=== PATIENT | male | born 1975 | race Caucasian/White ===

== ENCOUNTER 2018-10-14 16:24 | Emergency (ER) | payer SELFPAY ==
--- NOTE | 2018-10-14 17:20 | ER ---
Nurse's Notes [facility] Name: Shakir Nicole IV Age: 43 yrs Sex: Male : 1975 Arrival Date: 10/14/2018 Time: 16:27 Bed 27 Private MD: Diagnosis: Impacted cerumen, left ear Presentation: 10/14 16:28 Presenting complaint: Patient states: i have an earring on the inside of my L ear and hj its been there for a week now;. Transition of care: patient was not received from another setting of care. Onset of symptoms was October 14, 2018. Risk Assessment: Do you want to hurt yourself or someone else? Patient reports no desire to harm self or others. Initial Sepsis Screen: Does the patient meet any 2 criteria? No. Patient's initial sepsis screen is negative. Does the patient have a suspected source of infection? No. Patient's initial sepsis screen is negative. Care prior to arrival: None. 16:28 Method Of Arrival: Ambulatory 16:28 Acuity: SONIDO 4 hj Historical: - Allergies: 16:29 No Known Allergies; hj - PMHx: 16:29 None; hj - PSHx: 16:29 None; hj - Immunization history:: Adult Immunizations up to date. - Social history:: Smoking status: unknown. - Ebola Screening: : No symptoms or risks identified at this time. Screenin:08 Abuse screen: Denies threats or abuse. Denies injuries from another. Nutritional rv screening: No deficits noted. Tuberculosis screening: No symptoms or risk factors identified. Fall Risk None identified. Assessment: 17:07 General: Appears in no apparent distress. comfortable, Behavior is calm, cooperative. rv Pain: Complains of pain in left ear. Neuro: Level of Consciousness is awake, alert, obeys commands, Oriented to person, place, time, situation. Cardiovascular: Patient's skin is warm and dry. Respiratory: Airway is patent. GI: No signs and/or symptoms were reported involving the gastrointestinal system. : No signs and/or symptoms were reported regarding the genitourinary system. EENT: Ear canal impacted earwax. Derm: Skin is intact. Musculoskeletal: No signs and/or symptoms reported regarding the musculoskeletal system. Vital Signs: 16:30 BP 100 / 58; Pulse 75; Resp 18; Temp 98.1(O); Pulse Ox 100% on R/A; Weight 79.38 kg; hj Height 5 ft. 11 in. (180.34 cm); Pain 10/10; 16:30 Body Mass Index 24.41 (79.38 kg, 180.34 cm) ED Course: 16:27 Patient arrived in ED. mr 16:28 Ramos Don PA is PHCP. cp 16:28 Ramos Davey MD is Attending Physician. cp 16:29 Triage completed. hj 16:29 Arm band placed on left wrist. hj 16:52 John Galarza, ANNALEE is Primary Nurse. rv 17:09 Patient has correct armband on for positive identification. Bed in low position. Call rv light in reach. Side rails up X 1. Pulse ox on. NIBP on. 17:11 No provider procedures requiring assistance completed. Patient did not have IV access rv during this emergency room visit. Ear irrigation: Route left ear with Other warm water amount 250ml Patient tolerated well. 17:18 Susana Leblanc MD is Referral Physician. cp Administered Medications: No medications were administered Outcome: 17:11 Discharged to home ambulatory, with family. rv 17:11 Condition: improved 17:19 Discharge ordered by MD. cp 17:25 Discharge instructions given to patient, Instructed on discharge instructions, follow rv up and referral plans. Demonstrated understanding of instructions, follow-up care. 17:25 Patient left the ED. rv Signatures: Gege Santiago mr GibbsNam RN RN Ramos Don PA PA cp John Galarza, RN RN rv
--- NOTE | 2018-10-14 17:20 | EDPHYS ---
Physician Documentation [facility] Name: Shakir Nicole IV Age: 43 yrs Sex: Male : 1975 Arrival Date: 10/14/2018 Time: 16:27 Bed 27 Private MD: ED Physician Ramos Davey HPI: 10/14 16:50 This 43 yrs old Male presents to ER via Ambulatory with complaints of Foreign cp Body In Ear. 16:50 The patient presents with a foreign body sensation, earring. cp 16:50 The complaints affect the left ear canal. Onset: The symptoms/episode began/occurred 1 cp week(s) ago. Associated signs and symptoms: Pertinent positives: decreased hearing, Pertinent negatives: fever, lightheadedness, sinus trouble, sore throat, vertigo, vomiting. Severity of symptoms: in the emergency department the symptoms are unchanged despite home interventions. Historical: - Allergies: 16:29 No Known Allergies; hj - PMHx: 16:29 None; hj - PSHx: 16:29 None; hj - Immunization history:: Adult Immunizations up to date. - Social history:: Smoking status: unknown. - Ebola Screening: : No symptoms or risks identified at this time. ROS: 16:55 Constitutional: Negative for body aches, chills, fever, poor PO intake. cp 16:55 Eyes: Negative for injury, pain, redness, and discharge. cp 16:55 ENT: Positive for foreign body sensation, hearing loss, Negative for drainage from ear(s), ear pain, difficulty swallowing, difficulty handling secretions. 16:55 Cardiovascular: Negative for chest pain, palpitations. 16:55 Respiratory: Negative for cough, shortness of breath, wheezing. 16:55 Abdomen/GI: Negative for abdominal pain, nausea, vomiting, and diarrhea. 16:55 Skin: Negative for cellulitis, rash. 16:55 Neuro: Negative for altered mental status, headache, weakness. 16:55 All other systems are negative. Exam: 17:00 Constitutional: The patient appears in no acute distress, alert, awake, non-toxic, well cp developed, well nourished. 17:00 Head/Face: Normocephalic, atraumatic. cp 17:00 Eyes: Periorbital structures: appear normal, Conjunctiva: normal, no exudate, no injection, Lids and lashes: appear normal, bilaterally. 17:00 ENT: External ear(s): are unremarkable, Ear canal(s): cerumen impaction, that is moderate, occluding the left ear canal, TM's: not visable, because of cerumen, Examination of the other ear shows no obvious abnormality, Nose: is normal, Mouth: Lips: moist, Oral mucosa: moist, Posterior pharynx: Airway: no evidence of obstruction, patent. 17:00 Neck: Lymph nodes: no appreciated lymphadenopathy. 17:00 Chest/axilla: Inspection: normal. 17:00 Cardiovascular: Rate: normal. 17:00 Respiratory: the patient does not display signs of respiratory distress, Respirations: normal, no use of accessory muscles, no retractions, no splinting, no tachypnea. 17:00 Skin: no rash present. Vital Signs: 16:30 BP 100 / 58; Pulse 75; Resp 18; Temp 98.1(O); Pulse Ox 100% on R/A; Weight 79.38 kg; hj Height 5 ft. 11 in. (180.34 cm); Pain 10/10; 16:30 Body Mass Index 24.41 (79.38 kg, 180.34 cm) hj MDM: 16:41 Patient medically screened. [facility] 17:00 Differential diagnosis: otitis media, otitis externa, ruptured TM, foreign body, cp cerumen impaction. 17:18 Data reviewed: vital signs, nurses notes, and as a result, I will discharge patient. cp 17:18 Counseling: I had a detailed discussion with the patient and/or guardian regarding: the cp historical points, exam findings, and any diagnostic results supporting the discharge/admit diagnosis, to return to the emergency department if symptoms worsen or persist or if there are any questions or concerns that arise at home. Response to treatment: the patient's symptoms have markedly improved after treatment, and as a result, I will discharge patient. ED course: Ear irrigated by nurse and cerumen removed by nursing staff. Administered Medications: No medications were administered Disposition: 10/14/18 17:19 Discharged to Home. Impression: Impacted cerumen, left ear. - Condition is Stable. - Discharge Instructions: Earwax Buildup, Adult, Ear Irrigation. - Medication Reconciliation Form, Thank You Letter, Antibiotic Education, Prescription Opioid Use form. - Follow up: Leblanc, Susana, MD; When: As needed; Reason: Worsening of condition. - Problem is new. - Symptoms have improved. Addendum: 10/15/2018 20:36 Co-signature as Attending Physician, Ramos Davey MD I agree with the assessment and c gordillo plan of care. Signatures: Ramos Davey MD MD cha Joaquin, Henry RN RN Ramos Don PA PA John Guzman RN RN rv Corrections: (The following items were deleted from the chart) 10/14 17:25 17:19 10/14/2018 17:19 Discharged to Home. Impression: Impacted cerumen, left ear. rv Condition is Stable. Forms are Medication Reconciliation Form, Thank You Letter, Antibiotic Education, Prescription Opioid Use. Follow up: Susana Leblanc; When: As needed; Reason: Worsening of condition. Problem is new. Symptoms have improved. cp 17:10/13 16:55 Constitutional: Negative for chills, fever, poor PO intake, cp cp 10/14 16:10/13 16:55 Eyes: Negative for injury, pain, redness, and discharge, cp cp 10/14 17:10/13 16:55 ENT: Positive for foreign body sensation, hearing loss, Negative for cp drainage from ear(s), ear pain, sinus congestion, sinus pain, sore throat, difficulty swallowing, difficulty handling secretions, cp 10/14 17:10/13 16:55 Cardiovascular: Negative for chest pain, cp cp 10/14 17:10/13 16:55 Respiratory: Negative for cough, shortness of breath, wheezing, cp cp 10/14 17:30 10/13 16:55 Abdomen/GI: Negative for abdominal pain, nausea, vomiting, and diarrhea, cp cp 10/14 17:30 10/13 16:55 Skin: Negative for rash, cp cp 10/14 17:10/13 16:55 Neuro: Negative for altered mental status, headache, weakness, cp cp 10/14 17:10/13 16:55 All other systems are negative, cp cp
[2018-10-14 17:43] VITALS: BP 100/58; TEMP 98.1; O2SAT 100
== END 2018-10-14 17:25 | disposition home or self-care (01) ==
LOC: ER 16:24
DX: H61.22 Impacted cerumen, left ear (principal)
CPT/HCPCS: 99283

== ENCOUNTER 2019-03-11 16:54 | Emergency (ER) | payer SELFPAY ==
[2019-03-11] MEDS ORDERED: MORPHINE 4 MG/ML SYR ONE (17:08)
[2019-03-11] MEDS ORDERED: NA CHLORIDE 0.9% 1,000 ML ONE (17:08)
[2019-03-11] MEDS ORDERED: ONDANSETRON 4 MG/2 ML VIAL ONE (17:08)
[2019-03-11 17:17] LABS: Absolute Lymphocytes (CBC) 2.9 K/uL (0.7-4.9); Basophils % 0.8 % (0-1.3); Hematocrit 49.2 % (39.6-49.0); Lymphocytes % 33.5 % (15.3-44.8); MPV 9.1 fL (7.6-11.3); RBC Red Blood Cell Count 5.59 M/uL (4.33-5.43)
--- NOTE | 2019-03-11 17:27 | RAD REPORT ---
EXAM DESCRIPTION: CT - Stone Protocol - 03/11/2019 5:19 pm CLINICAL HISTORY: Flank pain. right flank pain, eval for stone COMPARISON: No comparisons TECHNIQUE: Axial images were obtained without oral or IV contrast. Lack of contrast limits solid org an and vascular assessment. The [id number] spans the entirety of the system partially obscuring uppermost abdomen and lung bases. Coronal reformatted images were obtained and reviewed. All CT scans are performed using dose optimization technique as appropriate and may include automated exposure control or mA/KV adjustment according to patient size. FINDINGS: The lower lung charles are clear. Imaged portions of the liver and spleen show no suspicious findings on non-contrast imaging. The panc reas and adrenal glands are normal. No pathologic lymphadenopathy in the abdomen or pelvis. 5 mm stone (730 HU) is present in the proximal right ureter resulting in mild right hydronephrosis. A dditional punctate calculi are present both kidneys. No bowel obstruction, free air, free fluid or abscess. Normal appendix noted. No significant bony abnormality. IMPRESSION: 5 mm stone is present in the proximal right ureter resulting in mild right hydronephrosi s. Additional punctate bilateral nephrolithiasis noted.
[2019-03-11] MEDS ORDERED: KETOROLAC 30 MG/ML INJ ONE (17:40)
[2019-03-11] MEDS ORDERED: TAMSULOSIN 0.4 MG SR CAP ONE (17:40)
[2019-03-11] MEDS ORDERED: MAGNESIUM SULFATE 1 gm IVPB 1 GM/100 ML BAG IV ONE (17:40)
[2019-03-11 17:44] LABS: Albumin 4.1 g/dL (3.4-5.0); Bilirubin Direct 0.1 mg/dL (0-0.2); Bilirubin Total 0.4 mg/dL (0.2-1.0); Potassium 4.1 mmol/L (3.5-5.1); Protein, Total 8.2 g/dL (6.4-8.2)
--- NOTE | 2019-03-11 18:45 | EDPHYS ---
Physician Documentation [facility] Name: Shakir Nicole IV Age: 44 yrs Sex: Male : 1975 Arrival Date: 03/11/2019 Time: 16:55 Bed 27 Private MD: ED Physician Emmanuel Freitas HPI: 03/11 17:03 This 44 yrs old Male presents to ER via EMS with complaints of right flank rn pain. 17:03 The patient complains of pain in the right mid back. The pain radiates to the right mid rn back. Onset: The symptoms/episode began/occurred 1 hour(s) ago. Modifying factors: The symptoms are alleviated by nothing. the symptoms are aggravated by nothing. Associated signs and symptoms: Pertinent positives: nausea, Pertinent negatives: fever, urinary frequency, headache, hematuria, vomiting. Severity of pain: At its worst the pain was moderate in the emergency department the pain is unchanged. The patient has not experienced similar symptoms in the past. Reports acute onset right flank pain, vasquez 1 hour [employer]BI[employer], no fever, no trauma. Has never had before, does not radiate down legs, no bowel/bladder dysfunction.. Historical: - Allergies: 17:03 No Known Allergies; mg2 - Home Meds: 17:03 None [Active]; mg2 - PMHx: 17:03 None; mg2 - PSHx: 17:03 None; mg2 - Immunization history:: Flu vaccine is not up to date. - Social history:: Smoking status: Patient reports the use of cigarette tobacco products, Patient uses alcohol. - Ebola Screening: : No symptoms or risks identified at this time. - Family history:: not pertinent. - Hospitalizations: : No recent hospitalization is reported. ROS: 17:03 Constitutional: Negative for fever, chills, and weight loss, Eyes: Negative for injury, rn pain, redness, and discharge, Neck: Negative for injury, pain, and swelling, Cardiovascular: Negative for chest pain, palpitations, and edema, Respiratory: Negative for shortness of breath, cough, wheezing, and pleuritic chest pain, Abdomen/GI: Negative for diarrhea, and constipation, Back: + right flank pain : Negative for injury, bleeding, discharge, and swelling, MS/Extremity: Negative for injury and deformity, Skin: Negative for injury, rash, and discoloration, Neuro: Negative for headache, weakness, numbness, tingling, and seizure. Exam: 17:03 Constitutional: This is a well developed, well nourished patient who is awake, alert, rn + appears in pain Head/Face: Normocephalic, atraumatic. Eyes: Pupils equal round and reactive to light, extra-ocular motions intact. Lids and lashes normal. Conjunctiva and sclera are non-icteric and not injected. Cornea within normal limits. Periorbital areas with no swelling, redness, or edema. ENT: MMM Cardiovascular: Tachycardic, regular. No pulse deficits. Respiratory: No increased work of breathing, no retractions or nasal flaring. Abdomen/GI: soft, non-tender Back: No spinal tenderness. No costovertebral tenderness. Full range of motion. MS/ Extremity: Pulses equal, no cyanosis. Neurovascular intact. Full, normal range of motion. Equal circumference. Neuro: Awake and alert, GCS 15, oriented to person, place, time, and situation. Cranial nerves II-XII grossly intact. Motor strength 5/5 in all extremities. Sensory grossly intact. Vital Signs: 17:10 BP 153 / 92; Pulse 80; Resp 18; Temp 98; Pulse Ox 100% on R/A; Weight 79.38 kg; Height mg2 5 ft. 11 in. (180.34 cm); Pain 10/10; 18:23 BP 145 / 70; Pulse 71; Resp 18; Pulse Ox 100% on R/A; mg2 19:30 BP 135 / 78; Pulse 70; Resp 18; Temp 98; Pulse Ox 100% on R/A; mg2 17:10 Body Mass Index 24.41 (79.38 kg, 180.34 cm) mg2 MDM: 16:56 Patient medically screened. rn 18:42 Differential diagnosis: nephrolithiasis. Data reviewed: vital signs, nurses notes, agricultural labor camp manager test result(s), radiologic studies, CT scan, and as a result, I will discharge patient. Counseling: I had a detailed discussion with the patient and/or guardian regarding: the historical points, exam findings, and any diagnostic results supporting the discharge/admit diagnosis, lab results, radiology results, the need for outpatient follow up, to return to the emergency department if symptoms worsen or persist or if there are any questions or concerns that arise at home. Response to treatment: the patient's symptoms have markedly improved after treatment, Pain down to 3/10, feels pain migrating now in groin., and as a result, I will discharge patient. Special discussion: I discussed with the patient/guardian in detail that at this point there is no indication for admission to the hospital. It is understood, however, that if the symptoms persist or worsen the patient needs to return immediately for re-evaluation. Based on the history and exam findings, there is no indication for further emergent testing or inpatient evaluation. I discussed with the patient/guardian the need to see the urologist for further evaluation of the symptoms. ED course: Pt sleeping, states pain 3/10, will give small dose of demerol for continued pain control, has picking him up, return precautions given and understood.. 03/11 17:02 Order name: Basic Metabolic Panel; Complete Time: 17:57 rn 03/11 17:02 Order name: CBC with Diff; Complete Time: 17:29 rn 03/11 17:02 Order name: Creatinine for Radiology; Complete Time: 17:57 rn 03/11 17:02 Order name: Hepatic Function; Complete Time: 17:57 rn 03/11 17:02 Order name: Lipase; Complete Time: 17:57 rn 03/11 17:02 Order name: CT Stone Protocol; Complete Time: 17:29 rn 03/11 17:02 Order name: IV Saline Lock; Complete Time: 17:11 rn 03/11 17:02 Order name: Labs collected and sent; Complete Time: 17:11 rn Administered Medications: 17:11 Drug: morphine 4 mg Route: IVP; Site: right antecubital; mg2 18:00 Follow up: Response: No adverse reaction; RASS: Alert and Calm (0) mg2 17:11 Drug: Zofran 4 mg Route: IVP; Site: right antecubital; mg2 18:00 Follow up: Response: No adverse reaction mg2 17:12 Drug: NS 0.9% 1000 ml Route: IV; Rate: 1000 ml; Site: right antecubital; mg2 18:45 Follow up: Response: No adverse reaction; IV Status: Completed infusion; IV Intake: mg2 1000ml 17:45 Drug: TORadol - Ketorolac 15 mg Route: IVP; Site: right antecubital; mg2 18:45 Follow up: Response: No adverse reaction mg2 17:45 Drug: Magnesium Sulfate 1 grams Route: IVPB; Infused Over: 1 hrs; Site: right mg2 antecubital; 18:45 Follow up: Response: No adverse reaction; IV Status: Completed infusion mg2 17:46 Drug: Flomax 0.4 mg Route: PO; mg2 19:00 Follow up: Response: No adverse reaction mg2 19:04 Drug: Demerol 25 mg Route: IVP; Site: right antecubital; mg2 19:31 Follow up: Response: No adverse reaction; Marked relief of symptoms mg2 Disposition: 03/11/19 18:44 Discharged to Home. Impression: Ureterolithiasis. - Condition is Stable. - Discharge Instructions: Kidney Stones, Dietary Guidelines to Help Prevent Kidney Stones. - Prescriptions for Zofran ODT 4 mg Oral tablet,disintegrating - place 1 tablet by TRANSLINGUAL route every 8 hours As needed; 20 tablet. Ibuprofen 800 mg Oral Tablet - take 1 tablet by ORAL route every 12 hours As needed take with food; 20 tablet. Tylenol- Codeine #3 300-30 mg Oral Tablet - take 2 tablet by ORAL route every 6 hours As needed; 20 tablet. Flomax 0.4 mg Oral Capsule, Sust. Release 24 hr - take 1 capsule by ORAL route once daily 1/2 hour following the same meal each day. Stop taking once you have passed the stone.; 5 capsule. - Medication Reconciliation Form, Thank You Letter, Antibiotic Education, Prescription Opioid Use form. - Follow up: Mendez Osman MD; When: As needed; Reason: Recheck today's complaints, Re-evaluation by your physician. - Problem is new. - Symptoms have improved. Signatures: Dispatcher [employer] EDCA Emmanuel Freitas MD MD rn Gardose, Michele, RN RN mg2 Corrections: (The following items were deleted from the chart) 19:31 18:44 03/11/2019 18:44 Discharged to Home. Impression: Ureterolithiasis. Condition is mg2 Stable. Forms are Medication Reconciliation Form, Thank You Letter, Antibiotic Education, Prescription Opioid Use. Follow up: Mendez Osman; When: As needed; Reason: Recheck today's complaints, Re-evaluation by your physician. Problem is new. Symptoms have improved. rn
--- NOTE | 2019-03-11 18:45 | ER ---
Nurse's Notes [facility] Name: Shakir Nicole IV Age: 44 yrs Sex: Male : 1975 Arrival Date: 03/11/2019 Time: 16:55 Bed 27 Private MD: Diagnosis: Ureterolithiasis Presentation: 03/11 17:01 Presenting complaint: EMS states: 2 hours ago while working on his trailer he started mg2 to have severe pain at the right lower back radiating to his lower abdomen with n/v. denies trauma or heavy lifting. Transition of care: patient was not received from another setting of care. Onset of symptoms was March 11, 2019 at 15:00. Risk Assessment: Do you want to hurt yourself or someone else? Patient reports no desire to harm self or others. Initial Sepsis Screen: Does the patient meet any 2 criteria? No. Patient's initial sepsis screen is negative. Does the patient have a suspected source of infection? No. Patient's initial sepsis screen is negative. Care prior to arrival: None. 17:01 Method Of Arrival: EMS: [facility] mg2 17:01 Acuity: SONIDO 2 mg2 Historical: - Allergies: 17:03 No Known Allergies; mg2 - Home Meds: 17:03 None [Active]; mg2 - PMHx: 17:03 None; mg2 - PSHx: 17:03 None; mg2 - Immunization history:: Flu vaccine is not up to date. - Social history:: Smoking status: Patient reports the use of cigarette tobacco products, Patient uses alcohol. - Ebola Screening: : No symptoms or risks identified at this time. - Family history:: not pertinent. - Hospitalizations: : No recent hospitalization is reported. Screenin:14 Abuse screen: Denies threats or abuse. Denies injuries from another. Nutritional mg2 screening: No deficits noted. Tuberculosis screening: No symptoms or risk factors identified. Fall Risk IV access (20 points). Assessment: 17:06 General: Appears uncomfortable, Behavior is restless, in severe pain. Pain: Complains mg2 of pain in right mid back Pain radiates to abdomen Pain at worst was 10 out of 10 on a pain scale. Quality of pain is described as aching, Pain began suddenly, 2 hours ago. Is continuous. Neuro: Level of Consciousness is awake, alert, obeys commands, Oriented to person, place, time, situation. Cardiovascular: Capillary refill < 3 seconds Patient's skin is warm and dry. Respiratory: Airway is patent Respiratory effort is even, unlabored, Respiratory pattern is regular, symmetrical. GI: Reports lower abdominal pain, nausea, vomiting, since 1500. : No signs and/or symptoms were reported regarding the genitourinary system. EENT: No signs and/or symptoms were reported regarding the EENT system. Derm: Skin is intact, is healthy with good turgor, Skin is pink, warm \T\ dry. normal. Musculoskeletal: Circulation, motion, and sensation intact. Capillary refill < 3 seconds. 17:16 Reassessment: sent to ct scan via wheelchair. mg2 Vital Signs: 17:10 BP 153 / 92; Pulse 80; Resp 18; Temp 98; Pulse Ox 100% on R/A; Weight 79.38 kg; Height mg2 5 ft. 11 in. (180.34 cm); Pain 10/10; 18:23 BP 145 / 70; Pulse 71; Resp 18; Pulse Ox 100% on R/A; mg2 19:30 BP 135 / 78; Pulse 70; Resp 18; Temp 98; Pulse Ox 100% on R/A; mg2 17:10 Body Mass Index 24.41 (79.38 kg, 180.34 cm) mg2 ED Course: 16:55 Patient arrived in ED. mg2 16:56 Emmanuel Freitas MD is Attending Physician. rn 17:01 Lee Patel, ANNALEE is Primary Nurse. mg2 17:02 Triage completed. mg2 17:03 Arm band placed on. mg2 17:05 Inserted saline lock: 20 gauge in right antecubital area, using aseptic technique. mg2 Blood collected. 17:13 No provider procedures requiring assistance completed. mg2 17:14 Patient has correct armband on for positive identification. Pulse ox on. NIBP on. Door mg2 closed. Warm blanket given. 17:20 CT Stone Protocol In Process Unspecified. EDMS 18:44 Mendez Osman MD is Referral Physician. rn 19:29 IV discontinued, intact, bleeding controlled, No redness/swelling at site. Pressure mg2 dressing applied. Administered Medications: 17:11 Drug: morphine 4 mg Route: IVP; Site: right antecubital; mg2 18:00 Follow up: Response: No adverse reaction; RASS: Alert and Calm (0) mg2 17:11 Drug: Zofran 4 mg Route: IVP; Site: right antecubital; mg2 18:00 Follow up: Response: No adverse reaction mg2 17:12 Drug: NS 0.9% 1000 ml Route: IV; Rate: 1000 ml; Site: right antecubital; mg2 18:45 Follow up: Response: No adverse reaction; IV Status: Completed infusion; IV Intake: mg2 1000ml 17:45 Drug: TORadol - Ketorolac 15 mg Route: IVP; Site: right antecubital; mg2 18:45 Follow up: Response: No adverse reaction mg2 17:45 Drug: Magnesium Sulfate 1 grams Route: IVPB; Infused Over: 1 hrs; Site: right mg2 antecubital; 18:45 Follow up: Response: No adverse reaction; IV Status: Completed infusion mg2 17:46 Drug: Flomax 0.4 mg Route: PO; mg2 19:00 Follow up: Response: No adverse reaction mg2 19:04 Drug: Demerol 25 mg Route: IVP; Site: right antecubital; mg2 19:31 Follow up: Response: No adverse reaction; Marked relief of symptoms mg2 Intake: 18:45 IV: 1000ml; Total: 1000ml. mg2 Outcome: 18:44 Discharge ordered by . rn 19:30 Discharged to home via wheelchair, with family. mg2 19:30 Condition: stable 19:30 Discharge instructions given to patient, family, Instructed on discharge instructions, follow up and referral plans. medication usage, Demonstrated understanding of instructions, follow-up care, medications, Prescriptions given X 4. 19:31 Patient left the ED. mg2 Signatures: Dispatcher [employer] EDEmmanuel Lucero MD MD rn Gardose, Michele, RN RN mg2
[2019-03-11] MEDS ORDERED: MEPERIDINE HCL 25 MG/0.5 ML ONE (18:59)
[2019-03-12 09:09] VITALS: TEMP 98; O2SAT 100
[2019-03-12 09:12] VITALS: BP 135/78
== END 2019-03-11 19:31 | disposition home or self-care (01) ==
LOC: ER 16:54
DX: N20.1 Calculus of ureter (principal); Z72.0 Tobacco use
CPT/HCPCS: 36415; 74176; 76377; 80048; 80076; 83690; 85025; 96361; 96365; 96375; 99284; J2175; J2405; J3475; J7030

== ENCOUNTER 2020-09-07 02:32 | Emergency (ER) | payer SELFPAY ==
[2020-09-07 03:25] LABS: Urine Appearance CLOUDY (Clear); Urine Bilirubin NEGATIVE (Negative); Urine Blood 3+ (Negative); Urine Color DK YELLOW (Yellow); Urine Glucose NEGATIVE (Negative); Urine Protein 1+ (Negative); Urine Specific Gravity >=1.030 (1.005-1.030); Urine pH 5.5 (5.0-7.0)
[2020-09-07 03:37] LABS: Urine Microscopic Reflex ORDER UMIC
[2020-09-07] MEDS ORDERED: MORPHINE 4 MG/ML SYR ONE (04:15)
[2020-09-07] MEDS ORDERED: ONDANSETRON 4 MG/2 ML VIAL ONE (04:16)
[2020-09-07] MEDS ORDERED: KETOROLAC 30 MG/ML INJ ONE (04:16)
[2020-09-07] MEDS ORDERED: CEFTRIAXONE 1000 MG/VIAL ONE (04:16)
[2020-09-07] MEDS ORDERED: NA CHLORIDE 0.9% 1,000 ML ONE (04:16)
[2020-09-07] MEDS ORDERED: NA CHLORIDE 0.9% 50 ML ONE (04:16)
[2020-09-07 04:17] LABS: Urine RBC >50 /HPF (NONE SEEN)
[2020-09-07 04:18] LABS: Calcium Oxalate Crystals- Ur MANY (NONE SEEN); Urine Bacteria <20 /HPF (NONE SEEN)
[2020-09-07 04:23] LABS: Absolute Lymphocytes (CBC) 1.8 K/uL (0.7-4.9); Basophils % 0.8 % (0-1.3); Hematocrit 48.6 % (39.6-49.0); Lymphocytes % 15.8 % (15.3-44.8); MPV 8.5 fL (7.6-11.3); RBC Red Blood Cell Count 5.56 M/uL (4.33-5.43)
[2020-09-07 04:35] LABS: Albumin 3.9 g/dL (3.4-5.0); Bilirubin Total 0.6 mg/dL (0.2-1.0); Potassium 3.7 mmol/L (3.5-5.1)
--- NOTE | 2020-09-07 05:31 | EDPHYS ---
Physician Documentation [facility] Name: Shakir Nicole IV Age: 45 yrs Sex: Male : 1975 Arrival Date: 09/07/2020 Time: 02:36 Bed 27 Private MD: Ramos Culver HPI: 09/07 04:15 This 45 yrs old Male presents to ER via Ambulatory with complaints of Low bjorn Back Pain - LEFT SIDE. 04:15 The patient presents with pain and decreased range of motion, and tenderness. The bjorn symptoms are located in the low back, left low back and left mid back. The pain does not radiate. The problem was sustained from unknown cause. Onset: The symptoms/episode began/occurred yesterday. Modifying factors: The patient symptoms are alleviated by nothing, the patient symptoms are aggravated by nothing. Associated signs and symptoms: The patient has no apparent associated signs or symptoms. Severity of symptoms: At their worst the symptoms were moderate, in the emergency department the symptoms are unchanged. The patient has not experienced similar symptoms in the past. Historical: - Allergies: 02:45 No Known Allergies; bb - Home Meds: 02:45 None [Active]; bb - PMHx: 02:45 None; bb - PSHx: 02:45 right leg; bb - Immunization history:: Adult Immunizations up to date, Client reports having NOT received the Covid vaccine. - Social history:: Smoking status: Patient reports the use of cigarette tobacco products, smokes one pack cigarettes per day. Patient uses alcohol, on a daily basis. Patient/guardian denies using street drugs. - Family history:: not pertinent. ROS: 04:15 Constitutional: Negative for fever, chills, and weight loss, Eyes: Negative for injury, bjorn pain, redness, and discharge, ENT: Negative for injury, pain, and discharge, Neck: Negative for injury, pain, and swelling, Cardiovascular: Negative for chest pain, palpitations, and edema, Respiratory: Negative for shortness of breath, cough, wheezing, and pleuritic chest pain, : Negative for injury, bleeding, discharge, and swelling, MS/Extremity: Negative for injury and deformity, Skin: Negative for injury, rash, and discoloration, Neuro: Negative for headache, weakness, numbness, tingling, and seizure, Psych: Negative for depression, anxiety, suicide ideation, homicidal ideation, and hallucinations, Allergy/Immunology: Negative for hives, rash, and allergies, Endocrine: Negative for neck swelling, polydipsia, polyuria, polyphagia, and marked weight changes, Hematologic/Lymphatic: Negative for swollen nodes, abnormal bleeding, and unusual bruising. 04:15 Abdomen/GI: Positive for abdominal pain, of the anterior aspect of left lateral abdomen, posterior aspect of left lateral abdomen, left upper quadrant and left lower quadrant. 04:15 Back: Positive for pain at rest, flank pain, on the left. Exam: 04:15 Constitutional: This is a well developed, well nourished patient who is awake, alert, bjorn and in no acute distress. Head/Face: Normocephalic, atraumatic. Eyes: Pupils equal round and reactive to light, extra-ocular motions intact. Lids and lashes normal. Conjunctiva and sclera are non-icteric and not injected. Cornea within normal limits. Periorbital areas with no swelling, redness, or edema. ENT: Nares patent. No nasal discharge, no septal abnormalities noted. Tympanic membranes are normal and external auditory canals are clear. Oropharynx with no redness, swelling, or masses, exudates, or evidence of obstruction, uvula midline. Mucous membranes moist. Neck: Trachea midline, no thyromegaly or masses palpated, and no cervical lymphadenopathy. Supple, full range of motion without nuchal rigidity, or vertebral point tenderness. No Meningismus. Chest/axilla: Normal chest wall appearance and motion. Nontender with no deformity. No lesions are appreciated. Cardiovascular: Regular rate and rhythm with a normal S1 and S2. No gallops, murmurs, or rubs. Normal PMI, no JVD. No pulse deficits. Respiratory: Lungs have equal breath sounds bilaterally, clear to auscultation and percussion. No rales, rhonchi or wheezes noted. No increased work of breathing, no retractions or nasal flaring. Male : Normal genitalia with no discharge or lesions. Skin: Warm, dry with normal turgor. Normal color with no rashes, no lesions, and no evidence of cellulitis. MS/ Extremity: Pulses equal, no cyanosis. Neurovascular intact. Full, normal range of motion. Neuro: Awake and alert, GCS 15, oriented to person, place, time, and situation. Cranial nerves II-XII grossly intact. Motor strength 5/5 in all extremities. Sensory grossly intact. Cerebellar exam normal. Normal gait. Psych: Awake, alert, with orientation to person, place and time. Behavior, mood, and affect are within normal limits. 04:15 Abdomen/GI: Inspection: abdomen appears normal, Bowel sounds: normal, Palpation: mild abdominal tenderness, in the anterior aspect of left lateral abdomen, posterior aspect of left lateral abdomen, left upper quadrant and left lower quadrant, Liver: no appreciated palpable abnormalities, Hernia: not appreciated. Vital Signs: 02:44 BP 139 / 93; Pulse 87; Resp 16 S; Temp 98(O); Pulse Ox 98% on R/A; Weight 83.91 kg (R); bb Height 5 ft. 11 in. (180.34 cm) (R); Pain 5/10; 04:08 BP 125 / 89; Pulse 76; Resp 16 S; Pulse Ox 96% on R/A; ad5 05:06 BP 127 / 84; Pulse 73; Resp 16 S; Pulse Ox 97% on R/A; ad5 02:44 Body Mass Index 25.80 (83.91 kg, 180.34 cm) bb MDM: 03:12 Patient medically screened. bjorn 04:18 Differential diagnosis: UTI. Data reviewed: vital signs, nurses notes, lab test bjorn result(s), radiologic studies, CT scan. Data interpreted: lunchroom monitor: rate is 96 beats/min, rhythm is regular, Pulse oximetry: on room air is 96 %. Counseling: I had a detailed discussion with the patient and/or guardian regarding: the historical points, exam findings, and any diagnostic results supporting the discharge/admit diagnosis, lab results, radiology results. 09/07 03:06 Order name: Urinalysis; Complete Time: 04:28 ad5 09/07 03:38 Order name: Urine Microscopic Only; Complete Time: 04:28 EDMS 09/07 03:50 Order name: Urine Culture bjorn 09/07 03:50 Order name: CBC with Diff; Complete Time: 04:28 bjorn 09/07 03:50 Order name: Comprehensive Metabolic Panel; Complete Time: 04:40 bjorn 09/07 04:40 Order name: CT Stone Protocol bjorn Administered Medications: 04:07 Drug: NS 0.9% 1000 ml Route: IV; Rate: 1 bolus; Site: right forearm; ad5 05:40 Follow up: IV Status: Completed infusion; IV Intake: 1000ml ad5 04:07 Drug: Ketorolac 30 mg Route: IVP; Site: right forearm; ad5 05:05 Follow up: Response: No adverse reaction; Pain is decreased ad5 04:07 Drug: morphine 4 mg {Note: RASS 0.} Route: IVP; Site: right forearm; ad5 05:05 Follow up: Response: No adverse reaction; Pain is decreased; RASS: Alert and Calm (0) ad5 04:07 Drug: Zofran (Ondansetron) 4 mg Route: IVP; Site: right forearm; ad5 05:05 Follow up: Response: No adverse reaction; Nausea is decreased ad5 04:07 Drug: Rocephin (cefTRIAXone) 1 grams Route: IV; Rate: per protocol; Site: right forearm;ad5 05:05 Follow up: Response: No adverse reaction; IV Status: Completed infusion ad5 05:37 Not Given (Physician Discretion): NS 0.9% 1000 ml IV at 1 bolus Per protocol; 1000 mL ad5 bolus 05:37 Drug: Cipro (ciprofloxacin) 500 mg Route: PO; ad5 05:43 Follow up: Response: No adverse reaction ad5 05:38 Drug: Flomax (tamsulosin) 0.4 mg Route: PO; ad5 05:43 Follow up: Response: No adverse reaction ad5 Disposition Summary: 09/07/20 05:30 Discharge Ordered Location: Home bjorn Problem: new bjorn Symptoms: have improved bjorn Condition: Stable bjorn Diagnosis - Hydronephrosis with renal and ureteral calculous obstruction bjorn - Kidney Stone/ Calculus in urethra bjorn - UTI/ Urinary tract infection, site not specified bjorn Followup: bjorn - With: Private Physician - When: 2 - 3 days - Reason: Recheck today's complaints, Continuance of care, Re-evaluation by your physician Followup: bjorn - With: - When: 2 - 3 days - Reason: Recheck today's complaints, Continuance of care, Re-evaluation by your physician Discharge Instructions: - Discharge Summary Sheet bjorn - Kidney Stones bjorn - Kidney Stones, [id number] bjorn - Hydronephrosis bjorn Forms: - Medication Reconciliation Form bjorn - Thank You Letter bjorn - Antibiotic Education bjorn - Prescription Opioid Use bjorn Prescriptions: - tamsulosin 0.4 mg Oral capsule - take 1 capsule by ORAL route once daily 1/2 hour following the same meal each [facility] day; 20 capsule; Refills: 0, Product Selection Permitted - Zofran 4 mg Oral Tablet - take 1 tablet by ORAL route every 12 hours As needed; 20 tablet; Refills: 0, [facility] Product Selection Permitted - Cipro 500 mg Oral Tablet - take 1 tablet by ORAL route every 12 hours for 7 days; 14 tablet; Refills: 0, [facility] Product Selection Permitted - Tramadol 50 mg Oral Tablet - take 2 tablet by ORAL route every 8 hours as needed; 24 tablet; Refills: 0, [facility] Product Selection Permitted Signatures: Dispatcher [employer] Ramos Langford MD MD cha Ballard, Brenda, RN RN Toby Arnett
--- NOTE | 2020-09-07 05:31 | ER ---
Nurse's Notes [facility] Name: Shakir Nicole IV Age: 45 yrs Sex: Male : 1975 Arrival Date: 09/07/2020 Time: 02:36 Bed 27 Private MD: Diagnosis: Hydronephrosis with renal and ureteral calculous obstruction;Kidney Stone/ Calculus in urethra;UTI/ Urinary tract infection, site not specified Presentation: 09/07 02:44 Chief complaint: Patient states: he started having left side pain from abdomen to back bb at approx 1700 last night pain was 10/10 for a long while but is now 5/10. Coronavirus screen: At this time, the client does not indicate any symptoms associated with coronavirus-19. Ebola Screen: No symptoms or risks identified at this time. Initial Sepsis Screen: Does the patient meet any 2 criteria? No. Patient's initial sepsis screen is negative. Does the patient have a suspected source of infection? No. Patient's initial sepsis screen is negative. Risk Assessment: Do you want to hurt yourself or someone else? Patient reports no desire to harm self or others. Onset of symptoms was September 06, 2020. 02:44 Method Of Arrival: Ambulatory bb 02:44 Acuity: SONIDO 3 bb Historical: - Allergies: 02:45 No Known Allergies; bb - Home Meds: 02:45 None [Active]; bb - PMHx: 02:45 None; bb - PSHx: 02:45 right leg; bb - Immunization history:: Adult Immunizations up to date, Client reports having NOT received the Covid vaccine. - Social history:: Smoking status: Patient reports the use of cigarette tobacco products, smokes one pack cigarettes per day. Patient uses alcohol, on a daily basis. Patient/guardian denies using street drugs. - Family history:: not pertinent. Screenin:08 Abuse screen: Denies threats or abuse. Denies injuries from another. Nutritional ad5 screening: No deficits noted. Tuberculosis screening: No symptoms or risk factors identified. Fall Risk None identified. Assessment: 03:07 General: Appears in no apparent distress. Behavior is calm, cooperative, appropriate ad5 for age. Pain: Complains of pain in suprapubic, LLQ. Neuro: No deficits noted. Level of Consciousness is awake, alert, obeys commands, Oriented to person, place, time, situation, Appropriate for age. Cardiovascular: No deficits noted. Capillary refill < 3 seconds Patient's skin is warm and dry. Respiratory: No deficits noted. Airway is patent Respiratory effort is even, unlabored, Respiratory pattern is regular, symmetrical. GI: Abdomen is flat, Abd is soft and non tender. : Reports pain in suprapubic area lower quadrant(s) Denies burning with urination, inability to void, incontinence. Derm: Skin is pink, warm \T\ dry. Musculoskeletal: No deficits noted. No signs and/or symptoms reported regarding the musculoskeletal system. 04:07 Reassessment: Patient appears in no apparent distress at this time. No changes from ad5 previously documented assessment. Patient and/or family updated on plan of care and expected duration. Pain level reassessed. 05:06 Reassessment: Patient appears in no apparent distress at this time. Patient is alert, ad5 oriented x 3, equal unlabored respirations, skin warm/dry/pink. Patient states symptoms have improved. Vital Signs: 02:44 BP 139 / 93; Pulse 87; Resp 16 S; Temp 98(O); Pulse Ox 98% on R/A; Weight 83.91 kg (R); bb Height 5 ft. 11 in. (180.34 cm) (R); Pain 5/10; 04:08 BP 125 / 89; Pulse 76; Resp 16 S; Pulse Ox 96% on R/A; ad5 05:06 BP 127 / 84; Pulse 73; Resp 16 S; Pulse Ox 97% on R/A; ad5 02:44 Body Mass Index 25.80 (83.91 kg, 180.34 cm) bb ED Course: 02:36 Patient arrived in ED. wm 02:45 Triage completed. bb 02:45 Arm band placed on Patient placed in an exam room, on a stretcher, on pulse oximetry. bb 02:51 Toby Rooney is Primary Nurse. ad5 03:08 Patient has correct armband on for positive identification. Bed in low position. Call ad5 light in reach. Side rails up X 1. Pulse ox on. NIBP on. Door closed. Noise minimized. Warm blanket given. Head of bed elevated. 03:08 No provider procedures requiring assistance completed. ad5 03:12 Ramos Davey MD is Attending Physician. bjorn 03:26 Urinalysis Sent. ad5 04:07 Initial lab(s) drawn, by ak, sent to lab. Inserted saline lock: 20 gauge in right ad5 forearm, using aseptic technique. Blood collected. 04:57 CT Stone Protocol In Process Unspecified. EDMS 05:30 Chadd Gabriel MD is Referral Physician. bjorn 05:44 IV discontinued, intact, bleeding controlled, No redness/swelling at site. Pressure ad5 dressing applied. Administered Medications: 04:07 Drug: NS 0.9% 1000 ml Route: IV; Rate: 1 bolus; Site: right forearm; ad5 05:40 Follow up: IV Status: Completed infusion; IV Intake: 1000ml ad5 04:07 Drug: Ketorolac 30 mg Route: IVP; Site: right forearm; ad5 05:05 Follow up: Response: No adverse reaction; Pain is decreased ad5 04:07 Drug: morphine 4 mg {Note: RASS 0.} Route: IVP; Site: right forearm; ad5 05:05 Follow up: Response: No adverse reaction; Pain is decreased; RASS: Alert and Calm (0) ad5 04:07 Drug: Zofran (Ondansetron) 4 mg Route: IVP; Site: right forearm; ad5 05:05 Follow up: Response: No adverse reaction; Nausea is decreased ad5 04:07 Drug: Rocephin (cefTRIAXone) 1 grams Route: IV; Rate: per protocol; Site: right forearm;ad5 05:05 Follow up: Response: No adverse reaction; IV Status: Completed infusion ad5 05:37 Not Given (Physician Discretion): NS 0.9% 1000 ml IV at 1 bolus Per protocol; 1000 mL ad5 bolus 05:37 Drug: Cipro (ciprofloxacin) 500 mg Route: PO; ad5 05:43 Follow up: Response: No adverse reaction ad5 05:38 Drug: Flomax (tamsulosin) 0.4 mg Route: PO; ad5 05:43 Follow up: Response: No adverse reaction ad5 Intake: 05:40 IV: 1000ml; Total: 1000ml. ad5 Outcome: 05:30 Discharge ordered by . bjorn 05:43 Discharged to home ambulatory, with significant other. ad5 05:43 Condition: stable 05:43 Discharge instructions given to patient, Instructed on discharge instructions, follow up and referral plans. medication usage, Demonstrated understanding of instructions, follow-up care, medications, Prescriptions given X 3. 05:44 Patient left the ED. ad5 Signatures: Dispatcher [employer] EDRamos Golden MD MD cha Ballard, Brenda, RN RN Toby Arnett ad5 Kori Danielle Corrections: (The following items were deleted from the chart) 05:37 05:31 NS 0.9% 1000 ml IV at 1 bolus in right forearm ad5 ad5
[2020-09-07 05:52] VITALS: TEMP 98
[2020-09-07 05:56] VITALS: BP 127/84; O2SAT 97
[2020-09-07] MEDS ORDERED: CIPROFLOXACIN HCL 500 MG TAB ONE (05:56)
[2020-09-07] MEDS ORDERED: TAMSULOSIN 0.4 MG SR CAP ONE (05:56)
--- NOTE | 2020-09-07 19:26 | RAD REPORT ---
EXAM DESCRIPTION: CT Abdomen and Pelvis Without Intravenous Contrast CLINICAL HISTORY: FLANK PAIN TECHNIQUE: Axial computed tomography images of the abdomen and pelvis without intravenous contrast. Sagittal and coronal reformatted images were created and reviewed. This CT exam was performed usi ng one or more of the following dose reduction techniques: automated exposure control, adjustment o f the mA and/or kV according to patient size, and/or use of iterative reconstruction technique. COMPARISON: 03/11/2019 FINDINGS: Limitations: None. Lung bases: No abnormality noted. Pleural space: No abnormality noted. Heart: No abnormality noted. Mediastinum: No abnormality noted. ABDOMEN: Liver: Lack of intravenous contrast limits detection of some masses. No abnormality noted. Gallbladder and bile ducts: No calcified stones or surrounding fluid. Pancreas: Lack of intravenous contrast limits detection of some masses. No pancreatic mass, laxmi cification, inflammation or ductal dilation noted. Spleen: No abnormality noted. Adrenals: Visualized portions appear normal. Kidneys and ureters: Mild left hydroureteronephrosis to a 3 mm stone just above the left UVJ. T here is mild enlargement of 2 small intrarenal stones left kidney the larger measuring 4 mm. Slight increase in the size of nonobstructing stones right kidney with the larger measuring 6.5 mm. Stomach and bowel: Moderate amounts of stool noted in the right and transverse colon. No obstru ction or inflammation. PELVIS: Appendix: Well seen and appears normal. Bladder: Appears normal for the degree of filling. No stones or inflammation. No large mass. Masses may not be detected in the absence of opacification. Reproductive: No abnormalities noted. ABDOMEN and PELVIS: Intraperitoneal space: No free air. No significant fluid collection. Bones/joints: No acute change noted. Soft tissues: No abnormality noted. Vasculature: No abdominal aortic aneurysm. Lymph nodes: No pathologically enlarged lymph nodes. IMPRESSION: 1. Mild left hydroureteronephrosis to a 3 mm stone just above the left UVJ. 2. Bilateral nonobstructing intrarenal stones have slightly increased in size since 03/11/2019. Electronically signed by: Kate Joshi MD 09/07/2020 5:27 AM CDT Due to temporary technical issues with the PACS/Fluency reporting system, reports are being signed by the in house radiologists without review as a courtesy to insure prompt reporting. The interpreting radiologist is fully responsible for the content of the report.
== END 2020-09-07 05:44 | disposition home or self-care (01) ==
LOC: ER 02:32
DX: N13.2 Hydronephrosis with renal and ureteral calculous obstruction (principal); N39.0 Urinary tract infection, site not specified; N21.1 Calculus in urethra; F17.210 Nicotine dependence, cigarettes, uncomplicated
CPT/HCPCS: 36415; 74176; 76377; 80053; 81003; 81015; 85025; 87086; 87088; 96361; 96365; 96375; 99284; J2405; J7030

== ENCOUNTER 2021-05-17 22:51 | Emergency (ER) | payer SELFPAY ==
[2021-05-17] MEDS ORDERED: CEFAZOLIN SODIUM 1 GM/VIAL ONE (23:32)
[2021-05-17] MEDS ORDERED: CEPHALEXIN 250 MG CAP ONE (23:33)
[2021-05-17] MEDS ORDERED: LIDOCAINE 1% MPF 5 ML VIAL ONE (23:33)
[2021-05-17] MEDS ORDERED: LIDOCAINE 1% MPF 30 ML VIAL ONE (23:33)
[2021-05-17] MEDS ORDERED: TETANUS & DIPHTHERIA TOX,ADULT 0.5 ML VIAL ONE (23:33)
[2021-05-17] MEDS ORDERED: WATER FOR INJ,STERILE 10 ML ONE (23:39)
--- NOTE | 2021-05-18 00:14 | EDPHYS ---
Physician Documentation [facility] Name: Shakir Nicole IV Age: 46 yrs Sex: Male : 1975 Arrival Date: 05/17/2021 Time: 22:55 Bed 20 Private MD: CURT Physician Ramos Davey HPI: 05/18 00:05 This 46 yrs old Male presents to ER via Ambulatory with complaints of Knee bjorn Injury. 00:05 The patient presents with decreased range of motion, pain. The complaints affect the bjorn right knee. Context: The problem was sustained at home, resulted from a direct blow, a penetrating injury, with sharp metal. Onset: The symptoms/episode began/occurred yesterday. Modifying factors: The symptoms are alleviated by nothing. the symptoms are aggravated by movement. Associated signs and symptoms: The patient has no apparent associated signs or symptoms. Severity of symptoms: At their worst the symptoms were mild, earlier today. The patient has not experienced similar symptoms in the past. Historical: - Allergies: 05/17 23:07 No Known Allergies; kd3 - Home Meds: 23:07 None [Active]; kd3 - PMHx: 23:07 None; kd3 - PSHx: 23:07 right leg; kd3 - Immunization history:: Adult Immunizations up to date, Client reports having NOT received the Covid vaccine. - Social history:: Smoking status: unknown. - Family history:: not pertinent. ROS: 05/18 00:05 Constitutional: Negative for fever, chills, and weight loss, Eyes: Negative for injury, bjorn pain, redness, and discharge, ENT: Negative for injury, pain, and discharge, Neck: Negative for injury, pain, and swelling, Cardiovascular: Negative for chest pain, palpitations, and edema, Respiratory: Negative for shortness of breath, cough, wheezing, and pleuritic chest pain, Abdomen/GI: Negative for abdominal pain, nausea, vomiting, diarrhea, and constipation, Back: Negative for injury and pain, : Negative for injury, bleeding, discharge, and swelling, Skin: Negative for injury, rash, and discoloration, Neuro: Negative for headache, weakness, numbness, tingling, and seizure, Psych: Negative for depression, anxiety, suicide ideation, homicidal ideation, and hallucinations, Allergy/Immunology: Negative for hives, rash, and allergies, Endocrine: Negative for neck swelling, polydipsia, polyuria, polyphagia, and marked weight changes, Hematologic/Lymphatic: Negative for swollen nodes, abnormal bleeding, and unusual bruising. MS/extremity: Positive for decreased range of motion, pain, swelling, tenderness, of the right knee. Exam: 00:05 Constitutional: This is a well developed, well nourished patient who is awake, alert, bjorn and in no acute distress. Head/Face: Normocephalic, atraumatic. Eyes: Pupils equal round and reactive to light, extra-ocular motions intact. Lids and lashes normal. Conjunctiva and sclera are non-icteric and not injected. Cornea within normal limits. Periorbital areas with no swelling, redness, or edema. ENT: Nares patent. No nasal discharge, no septal abnormalities noted. Tympanic membranes are normal and external auditory canals are clear. Oropharynx with no redness, swelling, or masses, exudates, or evidence of obstruction, uvula midline. Mucous membranes moist. Neck: Trachea midline, no thyromegaly or masses palpated, and no cervical lymphadenopathy. Supple, full range of motion without nuchal rigidity, or vertebral point tenderness. No Meningismus. Chest/axilla: Normal chest wall appearance and motion. Nontender with no deformity. No lesions are appreciated. Cardiovascular: Regular rate and rhythm with a normal S1 and S2. No gallops, murmurs, or rubs. Normal PMI, no JVD. No pulse deficits. Respiratory: Lungs have equal breath sounds bilaterally, clear to auscultation and percussion. No rales, rhonchi or wheezes noted. No increased work of breathing, no retractions or nasal flaring. Abdomen/GI: Soft, non-tender, with normal bowel sounds. No distension or tympany. No guarding or rebound. No evidence of tenderness throughout. Back: No spinal tenderness. No costovertebral tenderness. Full range of motion. Male : Normal genitalia with no discharge or lesions. Skin: Warm, dry with normal turgor. Normal color with no rashes, no lesions, and no evidence of cellulitis. Neuro: Awake and alert, GCS 15, oriented to person, place, time, and situation. Cranial nerves II-XII grossly intact. Motor strength 5/5 in all extremities. Sensory grossly intact. Cerebellar exam normal. Normal gait. Psych: Awake, alert, with orientation to person, place and time. Behavior, mood, and affect are within normal limits. 00:05 Musculoskeletal/extremity: Extremities: grossly normal except: noted in the right knee: decreased ROM, pain. Vital Signs: 05/17 23:04 BP 141 / 91; Pulse 90; Resp 16; Temp 98.6; Pulse Ox 96% on R/A; Weight 81.65 kg; Height kd3 5 ft. 11 in. (180.34 cm); Pain 2/10; 23:04 Body Mass Index 25.10 (81.65 kg, 180.34 cm) 3 MDM: 23:34 Patient medically screened. [facility] 05/18 00:07 Differential diagnosis: open fracture, contusion, abrasion. Data reviewed: vital signs, [facility] nurses notes, radiologic studies, plain films. Data interpreted: box repairer: not applicable for this patient encounter. rate is 90 beats/min, rhythm is regular. Test interpretation: by ED physician or midlevel provider: plain radiologic studies. Counseling: I had a detailed discussion with the patient and/or guardian regarding: the historical points, exam findings, and any diagnostic results supporting the discharge/admit diagnosis, radiology results, the need for outpatient follow up, for definitive care, 05/18 00:18 Order name: Urine Dipstick-Ancillary [facility] 05/17 23:26 Order name: Knee Right 3 View XRAY [facility] 05/17 23:26 Order name: Dressing - Wound; Complete Time: 00:07 [facility] 05/17 23:26 Order name: Gloves, Sterile; Complete Time: 00:07 [facility] 05/17 23:26 Order name: Prolene, Sutures; Complete Time: 00:07 [facility] 05/17 23:26 Order name: Setup Suture Tray; Complete Time: 00:07 [facility] 05/18 00:03 Order name: Urine Dipstick-Ancillary (obtain specimen); Complete Time: 00:21 [facility] Administered Medications: 00:06 Drug: Tetanus-Diphtheria Toxoid Adult 0.5 ml {Service Officer: [employer]. Exp: kd3 05/06/2022. Lot #: [id number]. } Route: IM; Site: right deltoid; 00:27 Follow up: Response: No adverse reaction 3 00:07 Drug: KeFLEX (cephalexin) 500 mg Route: PO; kd3 00:27 Follow up: Response: No adverse reaction kd3 00:07 Drug: Ancef (cefazolin) 1 grams Route: IM; Site: left ventrogluteal; kd3 00:27 Follow up: Response: No adverse reaction kd3 00:07 Drug: Lidocaine-Epinephrine -1%: (1:100,000) 5 ml Volume: 20 ml; Route: Infiltration; kd3 00:27 Follow up: Response: No adverse reaction kd3 Disposition Summary: 05/18/21 00:13 Discharge Ordered Location: Home bjorn Problem: new bjorn Symptoms: have improved bjorn Condition: Stable bjorn Diagnosis - Laceration without foreign body, left knee bjorn Followup: bjorn - With: Private Physician - When: 2 - 3 days - Reason: Recheck today's complaints, Continuance of care, Re-evaluation by your physician Followup: bjorn - With: Shiva Luis MD - When: 2 - 3 days - Reason: Recheck today's complaints, Re-evaluation by your physician Discharge Instructions: - Discharge Summary Sheet bjorn - Laceration Care, Adult bjorn - Puncture Wound bjorn - Laceration Care, Adult, [id number] bjorn - Puncture Wound, [id number] [facility] Forms: - Medication Reconciliation Form bjorn - Thank You Letter bjorn - Antibiotic Education bjorn - Prescription Opioid Use [facility] Prescriptions: - Cephalexin 500 mg Oral Capsule - take 1 capsule by ORAL route every 6 hours for 10 days; 40 capsule; Refills: 0, bjorn Product Selection Permitted - Tylenol-Codeine #3 300 mg-30 mg Oral - take 2 tablet by ORAL route every 6 hours; 20 tablet; Refills: 0, Product [facility] Selection Permitted Signatures: Dispatcher [employer] Ramos Langford MD MD cha Doucette, Kyli, RN RN kd3
--- NOTE | 2021-05-18 00:14 | ER ---
Nurse's Notes [facility] Name: Shakir Nicole IV Age: 46 yrs Sex: Male : 1975 Arrival Date: 05/17/2021 Time: 22:55 Bed 20 Private MD: Diagnosis: Laceration without foreign body, left knee Presentation: 05/17 23:04 Chief complaint: Patient states: I hit myself in the knee with a pick. I wrapped it but kd3 it just keeps bleeding. I stabbed myself around noon. Coronavirus screen: Vaccine status: Patient reports being unvaccinated. Ebola Screen: No symptoms or risks identified at this time. Initial Sepsis Screen: Does the patient meet any 2 criteria? No. Patient's initial sepsis screen is negative. Does the patient have a suspected source of infection? No. Patient's initial sepsis screen is negative. Risk Assessment: Do you want to hurt yourself or someone else? Patient reports no desire to harm self or others. Onset of symptoms was May 17, 2021. 23:04 Method Of Arrival: Ambulatory kd3 23:04 Acuity: SONIDO 3 kd3 Triage Assessment: 23:07 General: Appears in no apparent distress. Behavior is calm, cooperative. Pain: kd3 Complains of pain in right knee. Musculoskeletal: right knee injury. Injury Description: Puncture sustained to right knee. Historical: - Allergies: 23:07 No Known Allergies; kd3 - Home Meds: 23:07 None [Active]; kd3 - PMHx: 23:07 None; kd3 - PSHx: 23:07 right leg; kd3 - Immunization history:: Adult Immunizations up to date, Client reports having NOT received the Covid vaccine. - Social history:: Smoking status: unknown. - Family history:: not pertinent. Screenin:09 Abuse screen: Denies threats or abuse. Denies injuries from another. Nutritional kd3 screening: No deficits noted. Tuberculosis screening: No symptoms or risk factors identified. Fall Risk None identified. Vital Signs: 23:04 BP 141 / 91; Pulse 90; Resp 16; Temp 98.6; Pulse Ox 96% on R/A; Weight 81.65 kg; Height kd3 5 ft. 11 in. (180.34 cm); Pain 2/10; 23:04 Body Mass Index 25.10 (81.65 kg, 180.34 cm) kd3 ED Course: 22:55 Patient arrived in ED. ag3 23:04 Shonna Ramirez, RN is Primary Nurse. kd3 23:07 Triage completed. kd3 23:09 Arm band placed on right wrist. kd3 23:09 Patient has correct armband on for positive identification. Bed in low position. Call kd3 light in reach. 23:24 Ramos Davey MD is Attending Physician. [facility] 23:45 Knee Right 3 View XRAY In Process Unspecified. EDIA 05/18 00:12 Shiva Luis MD is Referral Physician. [facility] 00:26 No provider procedures requiring assistance completed. Patient did not have IV access kd3 during this emergency room visit. Administered Medications: 00:06 Drug: Tetanus-Diphtheria Toxoid Adult 0.5 ml {Statistical Developer: [employer]. Exp: kd3 05/06/2022. Lot #: [id number]. } Route: IM; Site: right deltoid; 00:27 Follow up: Response: No adverse reaction kd3 00:07 Drug: KeFLEX (cephalexin) 500 mg Route: PO; kd3 00:27 Follow up: Response: No adverse reaction kd3 00:07 Drug: Ancef (cefazolin) 1 grams Route: IM; Site: left ventrogluteal; kd3 00:27 Follow up: Response: No adverse reaction kd3 00:07 Drug: Lidocaine-Epinephrine -1%: (1:100,000) 5 ml Volume: 20 ml; Route: Infiltration; kd3 00:27 Follow up: Response: No adverse reaction kd3 Outcome: 00:13 Discharge ordered by . [facility] 00:26 Discharged to home ambulatory. kd3 00:26 Condition: stable 00:26 Discharge instructions given to patient, Instructed on discharge instructions, follow up and referral plans. medication usage, Demonstrated understanding of instructions, follow-up care, medications, Prescriptions given X 2. 00:28 Patient left the ED. kd3 Signatures: Dispatcher [employer] EDIA Ramos Davey MD MD cha Gomez, Alice ag3 Shonna Ramirez, RN RN kd3
[2021-05-18 00:18] LABS: Urine Blood Trace-intact (Negative); Urine Glucose Negative (Negative); Urine Protein Negative (Negative); Urine Specific Gravity >=1.030 (1.005-1.030)
[2021-05-18 02:53] VITALS: BP 141/91; TEMP 98.6; O2SAT 96
--- NOTE | 2021-05-18 16:32 | RAD REPORT ---
EXAM DESCRIPTION: RAD - Knee Right 3 View - 05/17/2021 11:43 pm CLINICAL HISTORY: 46 years Male, PAIN COMPARISON: None. FINDINGS: No fracture or dislocation. Joint spaces are preserved. No joint effusion. Prepatellar and infrapatellar swelling. IMPRESSION: No acute osseous abnormality. Electronically signed by: Domenico Dennis DO 05/18/2021 12:04 AM CDT Due to temporary technical issues with the PACS/Fluency reporting system, reports are being signed by the in house radiologists without review as a courtesy to insure prompt reporting. The interpreting radiologist is fully responsible for the content of the report.
== END 2021-05-18 00:28 | disposition home or self-care (01) ==
LOC: ER 22:51
DX: S81.011A Laceration without foreign body, right knee, initial encounter (principal); W27.4XXA Contact with kitchen utensil, initial encounter; Z23 Encounter for immunization
CPT/HCPCS: 81003; 90471; 90714; 96372; 99283; J0690

== ENCOUNTER 2021-12-07 12:30 | Emergency (ER) | payer SELFPAY ==
[2021-12-07 14:23] LABS: Urine Blood Trace-intact (Negative); Urine Glucose Negative (Negative); Urine Protein Trace (Negative); Urine Specific Gravity >=1.030 (1.005-1.030)
[2021-12-07 14:51] LABS: Urine Bacteria <20 /HPF (<20); Urine Mucus Slight /HPF (None Seen)
[2021-12-07 15:53] LABS: Absolute Lymphocytes (CBC) 2.2 K/uL (0.7-4.9); Hematocrit 47.9 % (39.6-49.0); Lymphocytes % 33.8 % (15.3-44.8); MCV 86.6 fL (80-100); MPV 8.2 fL (7.6-11.3); RBC Red Blood Cell Count 5.52 M/uL (4.33-5.43)
[2021-12-07 16:10] LABS: Albumin 3.6 g/dL (3.4-5.0); Bilirubin Total 0.4 mg/dL (0.2-1.0); Potassium 3.9 mmol/L (3.5-5.1); Protein, Total 7.6 g/dL (6.4-8.2)
--- NOTE | 2021-12-07 17:02 | ER ---
Nurse's Notes [facility] Name: Shakir Nicole IV Age: 46 yrs Sex: Male : 1975 Arrival Date: 12/07/2021 Time: 12:31 Bed 17 Private MD: Diagnosis: Dysuria Presentation: 12/07 12:42 Chief complaint: Patient states: Foul odor to urine - grajeda in color. Pt denies pain. ld1 Coronavirus screen: At this time, the client does not indicate any symptoms associated with coronavirus-19. Ebola Screen: No symptoms or risks identified at this time. Initial Sepsis Screen: Does the patient meet any 2 criteria? No. Patient's initial sepsis screen is negative. Does the patient have a suspected source of infection? No. Patient's initial sepsis screen is negative. Risk Assessment: Do you want to hurt yourself or someone else? Patient reports no desire to harm self or others. Onset of symptoms was December 07, 2021. 12:42 Method Of Arrival: Ambulatory ld1 12:42 Acuity: SONIDO 4 ld1 Triage Assessment: 12:42 General: Appears in no apparent distress. comfortable, Behavior is calm, cooperative, ld1 appropriate for age. Pain: Denies pain. EENT: No signs and/or symptoms were reported regarding the EENT system. Neuro: Level of Consciousness is awake, alert, obeys commands, Oriented to person, place, time, situation. Cardiovascular: Capillary refill < 3 seconds Patient's skin is warm and dry. Respiratory: Airway is patent Respiratory effort is even, unlabored. GI: Abdomen is flat, non-distended. : No signs and/or symptoms were reported regarding the genitourinary system. Derm: No signs and/or symptoms reported regarding the dermatologic system. Historical: - Allergies: 12:42 No Known Allergies; ld1 - Home Meds: 12:42 None [Active]; ld1 - PMHx: 12:42 None; ld1 - PSHx: 12:42 right leg; ld1 - Immunization history:: Adult Immunizations up to date, Client reports receiving the 2nd dose of the Covid vaccine. - Social history:: Smoking status: Patient reports the use of cigarette tobacco products, smokes one-half pack cigarettes per day, Patient/guardian denies using alcohol. Screenin:00 Abuse screen: Denies threats or abuse. Denies injuries from another. Nutritional ph screening: No deficits noted. Tuberculosis screening: No symptoms or risk factors identified. Fall Risk None identified. Assessment: 15:00 General: Appears in no apparent distress. comfortable, Behavior is calm, cooperative, ph appropriate for age, Denies fever, feeling ill. Pain: Denies pain. Neuro: Level of Consciousness is awake, alert, obeys commands, Oriented to person, place, time, situation. Cardiovascular: Capillary refill < 3 seconds in bilateral fingers Patient's skin is warm and dry. Respiratory: No deficits noted. GI: Patient currently denies abdominal pain, nausea, vomiting. : Reports dark, foul smelling urine Denies burning with urination, cramping discharge, inability to void, urinary frequency. Derm: Skin is intact, is healthy with good turgor, Skin is pink, warm \T\ dry. Vital Signs: 12:42 BP 133 / 81; Pulse 89; Resp 18; Temp 97.6(TE); Pulse Ox 99% on R/A; Weight 81.65 kg; ld1 Height 5 ft. 11 in. (180.34 cm); Pain 0/10; 15:30 BP 127 / 86; Pulse 87; Resp 18; Temp 98.0; Pulse Ox 99% on R/A; ph 17:15 BP 128 / 89; Pulse 85; Resp 16; Temp 97.9; Pulse Ox 100% on R/A; ph 12:42 Body Mass Index 25.10 (81.65 kg, 180.34 cm) ld1 ED Course: 12:31 Patient arrived in ED. as 12:42 Triage completed. ld1 12:42 Arm band placed on right wrist. ld1 12:55 Ramos Davey MD is Attending Physician. bjorn 14:00 Marisabel Bond, RN is Primary Nurse. ph 15:00 Patient has correct armband on for positive identification. ph 15:30 Inserted saline lock: 22 gauge in right antecubital area, using aseptic technique. ph 17:00 Chadd Gabriel MD is Referral Physician. bjorn 17:00 Washington Laureano DO is Referral Physician. bjorn 17:15 No provider procedures requiring assistance completed. IV discontinued, intact, ph bleeding controlled, No redness/swelling at site. Pressure dressing applied. Administered Medications: 15:57 Drug: NS 0.9% 1000 ml Route: IV; Rate: 1 bolus; Site: right antecubital; ph 17:00 Follow up: Response: No adverse reaction; IV Status: Completed infusion ph 17:18 Not Given (Patient Refused): Rocephin (cefTRIAXone) 1 grams IV at per protocol once; ph Given slow IV push per pharmacy instructions Medication: 16:00 VIS not applicable for this client. ph Outcome: 17:01 Discharge ordered by . bjorn 17:27 Patient left the ED. 17:27 Discharged to home ambulatory. ph 17:27 Condition: good 17:27 Discharge instructions given to patient, Instructed on discharge instructions, follow up and referral plans. medication usage, Demonstrated understanding of instructions, follow-up care, medications. Signatures: Ramos Davey MD MD cha Martinez, Amelia as Smirch, Shelby, ANNALEE RN Marisabel Bond RN RN Jaclyn Moreira RN RN ld1
--- NOTE | 2021-12-07 17:02 | EDPHYS ---
Physician Documentation [facility] Name: Shakir Nicole IV Age: 46 yrs Sex: Male : 1975 Arrival Date: 12/07/2021 Time: 12:31 Bed 17 Private MD: ED Physician Ramos Davey HPI: 12/07 16:54 This 46 yrs old Male presents to ER via Ambulatory with complaints of Urinary bjorn Problem - foul odor. 16:54 The patient presents with urinary symptoms, dysuria. Onset: The symptoms/episode bjorn began/occurred 1 day(s) ago. Modifying factors: The symptoms are alleviated by nothing, the symptoms are aggravated by nothing. Associated signs and symptoms: The patient has no apparent associated signs or symptoms. Severity of symptoms: At their worst the symptoms were mild, in the emergency department the symptoms are unchanged. The patient has not experienced similar symptoms in the past. Historical: - Allergies: 12:42 No Known Allergies; ld1 - Home Meds: 12:42 None [Active]; ld1 - PMHx: 12:42 None; ld1 - PSHx: 12:42 right leg; ld1 - Immunization history:: Adult Immunizations up to date, Client reports receiving the 2nd dose of the Covid vaccine. - Social history:: Smoking status: Patient reports the use of cigarette tobacco products, smokes one-half pack cigarettes per day, Patient/guardian denies using alcohol. ROS: 16:55 Constitutional: Negative for fever, chills, and weight loss, Eyes: Negative for injury, bjorn pain, redness, and discharge, ENT: Negative for injury, pain, and discharge, Neck: Negative for injury, pain, and swelling, Cardiovascular: Negative for chest pain, palpitations, and edema, Respiratory: Negative for shortness of breath, cough, wheezing, and pleuritic chest pain, Abdomen/GI: Negative for abdominal pain, nausea, vomiting, diarrhea, and constipation, Back: Negative for injury and pain, MS/Extremity: Negative for injury and deformity, Skin: Negative for injury, rash, and discoloration, Neuro: Negative for headache, weakness, numbness, tingling, and seizure, Psych: Negative for depression, anxiety, suicide ideation, homicidal ideation, and hallucinations, Allergy/Immunology: Negative for hives, rash, and allergies, Endocrine: Negative for neck swelling, polydipsia, polyuria, polyphagia, and marked weight changes, Hematologic/Lymphatic: Negative for swollen nodes, abnormal bleeding, and unusual bruising. 16:55 : Positive for urinary symptoms, foul smelling urine. Exam: 16:55 Constitutional: This is a well developed, well nourished patient who is awake, alert, bjorn and in no acute distress. Head/Face: Normocephalic, atraumatic. Eyes: Pupils equal round and reactive to light, extra-ocular motions intact. Lids and lashes normal. Conjunctiva and sclera are non-icteric and not injected. Cornea within normal limits. Periorbital areas with no swelling, redness, or edema. ENT: Nares patent. No nasal discharge, no septal abnormalities noted. Tympanic membranes are normal and external auditory canals are clear. Oropharynx with no redness, swelling, or masses, exudates, or evidence of obstruction, uvula midline. Mucous membranes moist. Neck: Trachea midline, no thyromegaly or masses palpated, and no cervical lymphadenopathy. Supple, full range of motion without nuchal rigidity, or vertebral point tenderness. No Meningismus. Chest/axilla: Normal chest wall appearance and motion. Nontender with no deformity. No lesions are appreciated. Cardiovascular: Regular rate and rhythm with a normal S1 and S2. No gallops, murmurs, or rubs. Normal PMI, no JVD. No pulse deficits. Respiratory: Lungs have equal breath sounds bilaterally, clear to auscultation and percussion. No rales, rhonchi or wheezes noted. No increased work of breathing, no retractions or nasal flaring. Abdomen/GI: Soft, non-tender, with normal bowel sounds. No distension or tympany. No guarding or rebound. No evidence of tenderness throughout. Back: No spinal tenderness. No costovertebral tenderness. Full range of motion. Male : Normal genitalia with no discharge or lesions. Skin: Warm, dry with normal turgor. Normal color with no rashes, no lesions, and no evidence of cellulitis. MS/ Extremity: Pulses equal, no cyanosis. Neurovascular intact. Full, normal range of motion. Neuro: Awake and alert, GCS 15, oriented to person, place, time, and situation. Cranial nerves II-XII grossly intact. Motor strength 5/5 in all extremities. Sensory grossly intact. Cerebellar exam normal. Normal gait. Psych: Awake, alert, with orientation to person, place and time. Behavior, mood, and affect are within normal limits. Vital Signs: 12:42 BP 133 / 81; Pulse 89; Resp 18; Temp 97.6(TE); Pulse Ox 99% on R/A; Weight 81.65 kg; ld1 Height 5 ft. 11 in. (180.34 cm); Pain 0/10; 15:30 BP 127 / 86; Pulse 87; Resp 18; Temp 98.0; Pulse Ox 99% on R/A; ph 17:15 BP 128 / 89; Pulse 85; Resp 16; Temp 97.9; Pulse Ox 100% on R/A; ph 12:42 Body Mass Index 25.10 (81.65 kg, 180.34 cm) ld1 MDM: 13:04 Patient medically screened. bjorn 16:56 Differential diagnosis: UTI, urinary retention, prostatitis, urethritis. Data reviewed: [facility] vital signs, nurses notes, lab test result(s). Data interpreted: gambling monitor: not applicable for this patient encounter. rate is 89 beats/min, rhythm is regular, Pulse oximetry: on room air is 99 %. 12/07 13:02 Order name: CBC with Diff; Complete Time: 16:47 [facility] 12/07 13:02 Order name: CMP; Complete Time: 16:47 [facility] 12/07 13:02 Order name: Lipase; Complete Time: 16:47 [facility] 12/07 13:02 Order name: Urine Microscopic Only; Complete Time: 16:47 [facility] 12/07 13:02 Order name: Urine Culture [facility] 12/07 14:23 Order name: Urine Dipstick-Ancillary; Complete Time: 16:47 EDOR 12/07 13:02 Order name: IV Saline Lock; Complete Time: 15:57 [facility] 12/07 13:02 Order name: Labs collected and sent; Complete Time: 15:57 [facility] 12/07 13:02 Order name: Urine Dipstick-Ancillary (obtain specimen); Complete Time: 15:57 [facility] Administered Medications: 15:57 Drug: NS 0.9% 1000 ml Route: IV; Rate: 1 bolus; Site: right antecubital; ph 17:00 Follow up: Response: No adverse reaction; IV Status: Completed infusion ph 17:18 Not Given (Patient Refused): Rocephin (cefTRIAXone) 1 grams IV at per protocol once; ph Given slow IV push per pharmacy instructions Disposition Summary: 12/07/21 17:01 Discharge Ordered Location: Home bjorn Problem: new bjorn Symptoms: have improved bjorn Condition: Stable bjorn Diagnosis - Dysuria bjorn Followup: bjorn - With: Private Physician - When: 2 - 3 days - Reason: Recheck today's complaints, Continuance of care, Re-evaluation by your physician Followup: bjorn - With: Chadd Gabriel MD - When: 5 - 6 days - Reason: Recheck today's complaints, Re-evaluation by your physician Followup: bjorn - With: Washington Laureano DO - When: 2 - 3 days - Reason: Recheck today's complaints, Re-evaluation by your physician Discharge Instructions: - Discharge Summary Sheet bjorn - Dysuria bjorn Forms: - Medication Reconciliation Form bjorn - Thank You Letter bjorn - Antibiotic Education bjorn - Prescription Opioid Use [facility] Prescriptions: - Cipro 500 mg Oral Tablet - take 1 tablet by ORAL route every 12 hours for 7 days; 14 tablet; Refills: 0, bjorn Product Selection Permitted Signatures: Dispatcher [employer] EDMS Ramos Davey MD MD cha Hall, Patricia RN RN ph Jaclyn Moreira, ANNALEE RN ld1 Corrections: (The following items were deleted from the chart) 16:57 13:03 Abdomen Pelvis W Con+CT.RAD.BRZ ordered. EDOR EDMS
[2021-12-07 17:49] VITALS: BP 133/81; TEMP 97.6; O2SAT 99
== END 2021-12-07 17:27 | disposition home or self-care (01) ==
LOC: ER 12:30
DX: R30.0 Dysuria (principal); F17.210 Nicotine dependence, cigarettes, uncomplicated
CPT/HCPCS: 36415; 80053; 81003; 81015; 83690; 85025; 87086; 87088; 96360; 99283

== ENCOUNTER 2022-04-06 06:05 | Emergency (ER) | payer OTHER, SELFPAY ==
[2022-04-06 06:39] LABS: Urine Blood Trace-lysed (Negative); Urine Glucose Negative (Negative); Urine Protein Negative (Negative); Urine Specific Gravity >=1.030 (1.005-1.030); Urine pH 5.5 (5.0-7.0)
--- NOTE | 2022-04-06 07:10 | EDPHYS ---
Physician Documentation [facility] Name: Shakir Nicole IV Age: 47 yrs Sex: Male : 1975 Arrival Date: 04/06/2022 Time: 06:12 Bed 7 Private MD: ED Physician Jonathan Odonnell HPI: 04/06 06:37 This 47 yrs old Male presents to ER via Ambulatory with complaints of Urine kdr Discoloration. 06:37 Patient states for the past 2 weeks his urine has been darker than usual. He was kdr concerned that he might have an infection so has been taking some medication twice a day for about the past week that similar to amoxicillin. This apparently has had no effect on the coloration of his urine. Denies any pain with urination or any or flank or back pain. He denies nausea vomiting and fever. Patient is nonacute and without any focal complaints at this time. Onset: The symptoms/episode began/occurred gradually, 2 week(s) ago. 19:58 States has been difficult to urinate for the last couple weeks. He is also noted that kdr his urine is darker than usual. He has no other complaints. He has not had a fever, nausea, vomiting flank pain. Historical: - Allergies: 06:26 No Known Allergies; kd3 - PSHx: 06:26 right leg; kd3 - Immunization history:: Adult Immunizations up to date. - Social history:: Smoking status: Patient reports the use of cigarette tobacco products, daily. ROS: 19:58 Constitutional: Negative for fever, chills, and weight loss, Eyes: Negative for injury, kdr pain, redness, and discharge, ENT: Negative for injury, pain, and discharge, Neck: Negative for injury, pain, and swelling, Cardiovascular: Negative for chest pain, palpitations, and edema, Respiratory: Negative for shortness of breath, cough, wheezing, and pleuritic chest pain, Abdomen/GI: Negative for abdominal pain, nausea, vomiting, diarrhea, and constipation, Back: Negative for injury and pain, MS/Extremity: Negative for injury and deformity, Skin: Negative for injury, rash, and discoloration, Neuro: Negative for headache, weakness, numbness, tingling, and seizure activity. Psych: Negative for depression, anxiety, suicide ideation, homicidal ideation, and hallucinations, Allergy/Immunology: Negative for hives, rash, and allergies, Endocrine: Negative for neck swelling, polydipsia, polyuria, polyphagia, and marked weight changes, Hematologic/Lymphatic: Negative for swollen nodes, abnormal bleeding, and unusual bruising. 19:58 : Positive for urinary symptoms, dark urine. Exam: 19:58 Constitutional: This is a well developed, well nourished patient who is awake, alert, kdr and in no acute distress. Head/Face: Normocephalic, atraumatic. Eyes: Pupils equal round and reactive to light, extra-ocular motions intact. Lids and lashes normal. Conjunctiva and sclera are non-icteric and not injected. Cornea within normal limits. Periorbital areas with no swelling, redness, or edema. Neck: Trachea midline, no thyromegaly or masses palpated, and no cervical lymphadenopathy. Supple, full range of motion without nuchal rigidity, or vertebral point tenderness. No Meningismus. Chest/axilla: Normal chest wall appearance and motion. Nontender with no deformity. No lesions are appreciated. Cardiovascular: Regular rate and rhythm with a normal S1 and S2. No gallops, murmurs, or rubs. Normal PMI, no JVD. No pulse deficits. Respiratory: Lungs have equal breath sounds bilaterally, clear to auscultation and percussion. No rales, rhonchi or wheezes noted. No increased work of breathing, no retractions or nasal flaring. Abdomen/GI: Soft, non-tender, with normal bowel sounds. No distension or tympany. No guarding or rebound. No evidence of tenderness throughout. Back: No spinal tenderness. No costovertebral tenderness. Full range of motion. Skin: Warm, dry with normal turgor. Normal color with no rashes, no lesions, and no evidence of cellulitis. MS/ Extremity: Pulses equal, no cyanosis. Neurovascular intact. Full, normal range of motion. Neuro: Awake and alert, GCS 15, oriented to person, place, time, and situation. Cranial nerves II-XII grossly intact. Motor strength 5/5 in all extremities. Sensory grossly intact. Cerebellar exam normal. Normal gait. Psych: Awake, alert, with orientation to person, place and time. Behavior, mood, and affect are within normal limits. Vital Signs: 06:24 BP 129 / 88; Pulse 91; Resp 19; Temp 97.6(O); Pulse Ox 98% on R/A; Weight 88.45 kg; kd3 Height 5 ft. 11 in. (180.34 cm); Pain 0/10; 07:32 BP 124 / 87; Pulse 87; Resp 16; Pulse Ox 100% ; bp 06:24 Body Mass Index 27.20 (88.45 kg, 180.34 cm) kd3 MDM: 07:09 Patient medically screened. kdr 19:58 Data reviewed: vital signs, nurses notes, lab test result(s). I considered the kdr following discharge prescriptions or medication management in the emergency department Medications were administered in the Emergency Department. See MAR. 04/06 06:18 Order name: Urine Culture kdr 04/06 06:39 Order name: Urine Dipstick-Ancillary; Complete Time: 07:08 EDNM 04/06 06:18 Order name: Urine Dipstick-Ancillary (obtain specimen); Complete Time: 06:42 kdr Administered Medications: No medications were administered Disposition Summary: 04/06/22 07:09 Discharge Ordered Location: Home kdr Problem: new kdr Symptoms: are unchanged kdr Condition: Stable kdr Diagnosis - Hematuria, unspecified kdr Followup: kdr - With: Private Physician - When: 2 - 3 days - Reason: If symptoms return, Further diagnostic work-up, Recheck today's complaints, Continuance of care, Re-evaluation by your physician Discharge Instructions: - Hematuria, Adult kdr - Discharge Summary Sheet jb4 Forms: - Medication Reconciliation Form kdr - Thank You Letter kdr Prescriptions: - Cipro 500 mg Oral Tablet - take 1 tablet by ORAL route every 12 hours for 7 days; 14 tablet; Refills: 0, kdr Product Selection Permitted Signatures: Dispatcher [employer] EDNM Jonathan Odonnell MD MD kdr Shonna Ramirez RN RN kd3
--- NOTE | 2022-04-06 07:10 | ER ---
Nurse's Notes [facility] Name: Shakir Nicole IV Age: 47 yrs Sex: Male : 1975 Arrival Date: 04/06/2022 Time: 06:12 Bed 7 Private MD: Diagnosis: Hematuria, unspecified Presentation: 04/06 06:24 Chief complaint: Patient states: For the past couple of weeks it has been a little hard kd3 to pee. It takes me a couple of minutes to pee sometimes. It is not painful and sometimes it is dark yellow. There is no foul odor or anything but just in case it was an infection i have been taking antibiotics i got from [place]. Coronavirus screen: Vaccine status: Patient reports being unvaccinated. Ebola Screen: No symptoms or risks identified at this time. Initial Sepsis Screen: Does the patient meet any 2 criteria? No. Patient's initial sepsis screen is negative. Does the patient have a suspected source of infection? No. Patient's initial sepsis screen is negative. Risk Assessment: Do you want to hurt yourself or someone else? Patient reports no desire to harm self or others. Onset of symptoms was April 06, 2022. 06:24 Method Of Arrival: Ambulatory kd3 06:24 Acuity: SONIDO 4 kd3 Triage Assessment: 06:26 General: Appears in no apparent distress. Behavior is calm, cooperative. Pain: Denies kd3 pain. Historical: - Allergies: 06:26 No Known Allergies; kd3 - PSHx: 06:26 right leg; kd3 - Immunization history:: Adult Immunizations up to date. - Social history:: Smoking status: Patient reports the use of cigarette tobacco products, daily. Screenin:32 [facility] ED Fall Risk Assessment (Adult) History of falling in the last 3 months, bp including since admission No falls in past 3 months (0 pts). Abuse screen: Denies threats or abuse. Denies injuries from another. Nutritional screening: No deficits noted. Tuberculosis screening: No symptoms or risk factors identified. Assessment: 06:30 General: Appears in no apparent distress. comfortable, Behavior is calm, cooperative, jb4 appropriate for age. Pain: Denies pain. Neuro: Level of Consciousness is awake, alert, obeys commands, Oriented to person, place, time, situation. Cardiovascular: Respiratory: Airway is patent Respiratory effort is even, unlabored, Respiratory pattern is regular, symmetrical. GI: No signs and/or symptoms were reported involving the gastrointestinal system. : Reports Darker urination than normal, and trouble stopping. EENT: No signs and/or symptoms were reported regarding the EENT system. Derm: Skin is intact, Skin is pink, warm \T\ dry. Musculoskeletal: No signs and/or symptoms reported regarding the musculoskeletal system. 07:32 Reassessment: DC HOME AMBULATORY. bp Vital Signs: 06:24 BP 129 / 88; Pulse 91; Resp 19; Temp 97.6(O); Pulse Ox 98% on R/A; Weight 88.45 kg; kd3 Height 5 ft. 11 in. (180.34 cm); Pain 0/10; 07:32 BP 124 / 87; Pulse 87; Resp 16; Pulse Ox 100% ; bp 06:24 Body Mass Index 27.20 (88.45 kg, 180.34 cm) kd3 ED Course: 06:12 Patient arrived in ED. ja2 06:17 Jonathan Odonnell MD is Attending Physician. kdr 06:26 Triage completed. kd3 06:26 Arm band placed on right wrist. kd3 06:42 Urine Culture Sent. ed2 06:48 Miguel Pedersen, RN is Primary Nurse. jb4 07:32 Patient has correct armband on for positive identification. Bed in low position. Call bp light in reach. Side rails up X2. 07:32 No provider procedures requiring assistance completed. Patient did not have IV access bp during this emergency room visit. Administered Medications: No medications were administered Medication: 07:32 VIS not applicable for this client. bp Outcome: 07:09 Discharge ordered by . kdr 07:32 Discharged to home ambulatory. bp 07:32 Condition: stable 07:32 Discharge instructions given to patient, Instructed on discharge instructions, follow up and referral plans. medication usage, Demonstrated understanding of instructions, follow-up care, medications, Prescriptions given X 1. 07:33 Patient left the ED. bp Signatures: Jonathan Odonnell MD MD kdr Miguel Pedersen, RN RN jb4 Jaleel Wagoner RN RN Shania Nash ja2 Shonna Ramirez RN RN kd3 Haley Edward ed2
[2022-04-06 07:38] VITALS: TEMP 97.6
[2022-04-06 07:39] VITALS: BP 124/87; O2SAT 100
== END 2022-04-06 07:33 | disposition home or self-care (01) ==
LOC: ER 06:05
DX: R31.9 Hematuria, unspecified (principal); Z72.0 Tobacco use
CPT/HCPCS: 81003; 87086; 87088; 99283

== ENCOUNTER 2023-06-18 10:50 | Emergency (ER) | payer OTHER, SELFPAY ==
[2023-06-18] MEDS ORDERED: MORPHINE 4 MG/ML SYR ONE (12:02)
[2023-06-18] MEDS ORDERED: ONDANSETRON 4 MG/2 ML VIAL ONE (12:07)
[2023-06-18 12:09] LABS: Absolute Basophils 0.1 K/uL (0-0.5); Absolute Eosinophils 0.2 K/uL (0-0.5); Absolute Lymphocytes (CBC) 1.6 K/uL (0.7-4.9); Absolute Monocytes 0.5 K/uL (0.1-1.3); Absolute Neutrophil 6.6 K/uL (1.8-8.0); Basophils % 0.9 % (0-1.3); Eosinophils % 2.3 % (0-4.4); Hematocrit 48.2 % (39.6-49.0); Hemoglobin 15.9 g/dL (13.6-17.9); Lymphocytes % 18.3 % (15.3-44.8); MCH 29.1 pg (27.0-35.0); MCV 88.2 fL (80-100); MPV 8.3 fL (7.6-11.3); Monocytes % 5.1 % (3.3-12.3); Neutrophils % 73.4 % (41.7-73.7); Platelets 243 thou/uL (152-406); RBC Red Blood Cell Count 5.47 M/uL (4.33-5.43); Red Cell Distribution Width 13.3 % (12.1-15.2)
[2023-06-18 12:18] LABS: Specific Gravity 1.025 (1.005-1.030); Sqamous Epithelial None Seen /HPF (None Seen); Urine Bacteria None Seen /HPF (<20); Urine Bilirubin NEGATIVE (Negative); Urine Blood 3+ (OVER) (Negative); Urine Clarity Extremely Turbid (Clear); Urine Color Light-Orange (Yellow); Urine Culture Reflex Order NOT NEEDED; Urine Glucose NEGATIVE (Negative); Urine Ketones NEGATIVE (Negative); Urine Microscopic Reflex YN ORDER UMIC; Urine Mucus Slight /HPF (None Seen); Urine Nitrite NEGATIVE (Negative); Urine Protein 1+ (Negative); Urine RBC >50 /HPF (None Seen); Urine Sperm Present (None Seen); Urine Urobilinogen Normal (Normal); Urine Yeast (Budding) Trace /HPF (None Seen)
[2023-06-18 13:42] LABS: Albumin 3.6 g/dL (3.4-5.0); Albumin/Globulin Ratio 0.9 (1.1-1.8); Anion Gap 4.8 mEq/L (5.0-15.0); Bilirubin Total 0.4 mg/dL (0.2-1.0); Potassium 3.8 mEq/L (3.5-5.1); Protein, Total 7.6 g/dL (6.4-8.2)
--- NOTE | 2023-06-18 14:00 | RAD REPORT ---
EXAM DESCRIPTION: CT - Abdomen Pelvis W Contrast - 06/18/2023 1:03 pm CLINICAL HISTORY: Flank pain;Hematuria COMPARISON: No comparisons TECHNIQUE: Thin cut axial CT imaging of the abdomen and pelvis was performed following intravenous a dministration of 100 mL Isovue 300. Multiplanar reformats were generated and reviewed. All CT scans are performed using dose optimization technique as appropriate and may include automated exposure control or mA/KV adjustment according to patient size. FINDINGS: No suspicious findings in the lung bases. Right more than left basilar streaky/ ground-gla ss opacification, favored to represent scarring or atelectasis. The liver, spleen, adrenal glands, and pancreas show no suspicious findings. Gallbladder and biliary tree are also without suspicious finding. Symmetric renal function is seen with multiple bilateral calculi, largest measuring 13 mm at the righ t upper calyx and 6 mm at the left interpolar region. Mild left hydroureteronephrosis, with a 5 mm le ft pelviureteric junction calculus. No dilated bowel loops or bowel wall thickening. No free air, free fluid or inflammatory stranding. N o hernia, mass or bulky lymphadenopathy. The urinary bladder is without significant finding. No suspicious bony findings. IMPRESSION: Mild left hydronephrosis. 5 mm left of ureteric junction obstructing calculus. Other nonobstructing bilateral calculi as above. The findings were communicated to Emmanuel Freitas on 06/18/2023 at 13:54 hours.
[2023-06-18] MEDS ORDERED: TAMSULOSIN 0.4 MG SR CAP ONE (14:29)
[2023-06-18] MEDS ORDERED: KETOROLAC 30 MG/ML INJ ONE (14:30)
[2023-06-18] MEDS ORDERED: MAGNESIUM SULFATE 1 gm IVPB 1 GM/100 ML BAG IV ONE (14:30)
--- NOTE | 2023-06-18 14:44 | ER ---
Nurse's Notes [facility] Name: Shakir Nicole IV Age: 48 yrs Sex: Male : 1975 Arrival Date: 06/18/2023 Time: 10:50 Bed 16 Private MD: Diagnosis: Calculus of kidney with calculus of ureter Presentation: 06/17 11:04 Chief complaint: Patient states: left kidney is killing me, passing blood in urine X 2 iw days , hx of kidney stones. Coronavirus screen: At this time, the client does not indicate any symptoms associated with coronavirus-19. Ebola Screen: Patient negative for fever greater than or equal to 101.5 degrees Fahrenheit, and additional compatible Ebola Virus Disease symptoms Patient denies exposure to infectious person. Patient denies travel to an Ebola-affected area in the 21 days before illness onset. No symptoms or risks identified at this time. Initial Sepsis Screen: Does the patient meet any 2 criteria? No. Patient's initial sepsis screen is negative. Does the patient have a suspected source of infection? No. Patient's initial sepsis screen is negative. Risk Assessment: Do you want to hurt yourself or someone else? Patient reports no desire to harm self or others. Onset of symptoms was June 16, 2023. 11:04 Method Of Arrival: Ambulatory iw 11:04 Acuity: SONIDO 3 iw Triage Assessment: 11:06 General: Appears uncomfortable, Behavior is cooperative. Pain: Complains of pain in iw lumbar area, left low back and left mid back. Historical: - Allergies: 11:05 No Known Allergies; iw - Home Meds: 11:05 None [Active]; iw - PMHx: 11:05 None; iw - PSHx: 11:05 right leg; iw - Immunization history:: Adult Immunizations not up to date. - Infectious Disease History:: Denies. - Social history:: Smoking status: Patient reports the use of cigarette tobacco products. Screenin:25 [facility] ED Fall Risk Assessment (Adult) History of falling in the last 3 months, cp4 including since admission No falls in past 3 months (0 pts) Confusion or Disorientation No (0 pts) Intoxicated or Sedated No (0 pts) Impaired Gait No (0 pts) Mobility Assist Device Used No (0 pt) Altered Elimination No (0 pt) Score/Fall Risk Level 0 - 2 = Low Risk Oriented to surroundings, Maintained a safe environment, Assessed \T\ reinforced patient's understanding of fall precautions, Hourly rounding (assess needs \T\ fall precautionary measures) done. Abuse screen: Denies threats or abuse. Nutritional screening: No deficits noted. Tuberculosis screening: No symptoms or risk factors identified. Assessment: 14:25 General: Appears distressed, Behavior is calm, cooperative, appropriate for age. Pain:. cp4 GI: Reports. : Reports burning with urination, blood in urine. 14:55 Reassessment: Pending discharge. Finishing IV medications. cp4 15:11 Reassessment: Patient appears in no apparent distress at this time. No changes from ld1 previously documented assessment. Patient and/or family updated on plan of care and expected duration. Pain level reassessed. Vital Signs: 11:04 BP 154 / 100; Pulse 77; Resp 16; Temp 98.4; Pulse Ox 99% on R/A; Weight 79.38 kg; iw Height 5 ft. 11 in. ; Pain 9/10; 15:11 BP 136 / 88; Pulse 74; Resp 16; Pulse Ox 99% ; cp4 11:04 Body Mass Index 24.41 (79.38 kg, 180.34 cm) iw 11:04 Pain Scale: Adult iw ED Course: 10:51 Patient arrived in ED. rg4 10:53 Katie Nunn PA-C is PHCP. sb4 10:53 Emmanuel Freitas MD is Attending Physician. sb4 11:05 Triage completed. iw 11:06 Arm band placed on. iw 11:51 Shakira Reyes is Primary Nurse. cp4 11:51 CT Abd/Pelvis - IV Contrast Only Sent. cp4 12:06 CBC with Diff Sent. cp4 12:06 CMP Sent. cp4 12:06 Lipase Sent. cp4 12:06 Urinalysis w/ reflexes Sent. cp4 13:05 CT Abd/Pelvis - IV Contrast Only In Process Unspecified. EDMS 14:25 Bed in low position. Call light in reach. Side rails up X 1. cp4 14:43 Chadd Gabriel MD is Referral Physician. sb4 15:11 No provider procedures requiring assistance completed. IV discontinued, intact, ld1 bleeding controlled, No redness/swelling at site. 15:12 Provided Education on: kidney stones.. cp4 Administered Medications: 12:06 Drug: Ondansetron IVP 4 mg IVP once; over 2 minutes Route: IVP; Site: left antecubital; cp4 15:11 Follow up: Response: No adverse reaction cp4 12:06 Drug: morphine IVP or IV 4 mg IVP once over 4 mins Route: IVP; Infused Over: 4 mins; cp4 Site: left antecubital; 15:11 Follow up: Response: No adverse reaction cp4 14:39 Drug: Ketorolac IVP 15 mg IVP once Route: IVP; Site: left antecubital; cp4 15:10 Follow up: Response: No adverse reaction cp4 14:40 Drug: Magnesium Sulfate IVPB 1 grams IVPB once over 1 hrs Route: IVPB; Infused Over: 1 cp4 hrs; Site: left antecubital; 15:10 Follow up: Response: No adverse reaction; IV Status: Completed infusion cp4 14:40 Drug: Flomax PO 0.4 mg PO once Route: PO; cp4 15:10 Follow up: Response: No adverse reaction cp4 Medication: 14:25 VIS not applicable for this client. cp4 Outcome: 14:43 Discharge ordered by MD. sb4 15:12 Discharged to home ambulatory, ld1 15:12 Condition: stable 15:12 Discharge instructions given to patient, Instructed on discharge instructions, follow up and referral plans. medication usage, Demonstrated understanding of instructions, follow-up care, medications, Prescriptions given X 4, 15:12 Patient left the ED. ld1 Signatures: Dispatcher [employer] Blaire Jones RN RN iw Garcia, Rubi rg4 Jaclyn Matthews RN RN ld1 Katie Nunn, PA-C PA-C sb4 Shakira Reyes cp4
--- NOTE | 2023-06-18 14:44 | EDPHYS ---
Physician Documentation [facility] Name: Shakir Nicole IV Age: 48 yrs Sex: Male : 1975 Arrival Date: 06/18/2023 Time: 10:50 Bed 16 Private MD: ED Physician Emmanuel Freitas HPI: 06/17 11:12 This 48 yrs old Male presents to ER via Ambulatory with complaints of flank pain. sb4 11:12 The patient complains of pain in the left low back. The pain does not radiate. Onset: sb4 The symptoms/episode began/occurred this morning. Modifying factors: The symptoms are alleviated by nothing. the symptoms are aggravated by nothing. Associated signs and symptoms: Pertinent positives: hematuria, nausea, vomiting, Pertinent negatives: fever, urinary frequency, pain radiating to the lower extremities. The patient has experienced a previous episode, many years ago. The patient has not recently seen a physician. Historical: - Allergies: 11:05 No Known Allergies; iw - Home Meds: 11:05 None [Active]; iw - PMHx: 11:05 None; iw - PSHx: 11:05 right leg; iw - Immunization history:: Adult Immunizations not up to date. - Infectious Disease History:: Denies. - Social history:: Smoking status: Patient reports the use of cigarette tobacco products. ROS: 11:12 Constitutional: Negative for fever, chills, and weight loss, sb4 11:12 Back: Positive for flank pain, on the left, 11:12 : Positive for hematuria, 11:12 All other systems are negative, Exam: 11:12 Head/Face: Normocephalic, atraumatic. Eyes: Extra-ocular motions intact. Periorbital sb4 areas with no swelling, redness, or edema. ENT: Mucous membranes moist. Cardiovascular: Regular rate and rhythm with a normal S1 and S2. Respiratory: Lungs have equal breath sounds bilaterally, clear to auscultation and percussion. No rales, rhonchi or wheezes noted. No increased work of breathing, no retractions or nasal flaring. Abdomen/GI: Soft, non-tender, no distension. Skin: Warm, dry with normal turgor. Normal color with no rashes, no lesions, and no evidence of cellulitis. MS/ Extremity: Pulses equal, no cyanosis. Neurovascular intact. Full, normal range of motion. 11:12 Constitutional: The patient appears alert, awake, in obvious pain, 11:12 Back: CVA tenderness, that is moderate, is noted on the left, Vital Signs: 11:04 BP 154 / 100; Pulse 77; Resp 16; Temp 98.4; Pulse Ox 99% on R/A; Weight 79.38 kg; iw Height 5 ft. 11 in. ; Pain 9/10; 15:11 BP 136 / 88; Pulse 74; Resp 16; Pulse Ox 99% ; cp4 11:04 Body Mass Index 24.41 (79.38 kg, 180.34 cm) iw 11:04 Pain Scale: Adult iw MDM: 11:00 Patient medically screened. sb4 14:43 Data reviewed: vital signs, nurses notes, lab test result(s), radiologic studies, and sb4 as a result, I will discharge patient. Counseling: I had a detailed discussion with the patient and/or guardian regarding the historical points, exam findings, and any diagnostic results supporting the discharge/admit diagnosis, lab results, radiology results, the need for outpatient follow up, a urologist, to return to the emergency department if symptoms worsen or persist or if there are any questions or concerns that arise at home. 06/17 11:06 Order name: CBC with Diff; Complete Time: 12:10 [facility] 06/17 11:06 Order name: CMP; Complete Time: 13:46 [facility] 06/17 11:06 Order name: Lipase; Complete Time: 13:46 [facility] 06/17 11:06 Order name: Urinalysis w/ reflexes; Complete Time: 12:21 [facility] 06/17 11:06 Order name: CT Abd/Pelvis - IV Contrast Only; Complete Time: 14:01 4 06/17 11:06 Order name: IV Saline Lock; Complete Time: 12:06 [facility] 06/17 11:06 Order name: Labs collected and sent; Complete Time: 12:06 [facility] 06/17 12:14 Order name: Labs - recollect needed: recollect green top; Complete Time: 12:23 06/17 12:38 Order name: Labs - recollect needed: re recollect green top; Complete Time: 12:43 06/17 13:00 Order name: Labs - recollect needed: recollect green top again; Complete Time: 13:55 bd Administered Medications: 12:06 Drug: Ondansetron IVP 4 mg IVP once; over 2 minutes Route: IVP; Site: left antecubital; cp4 15:11 Follow up: Response: No adverse reaction cp4 12:06 Drug: morphine IVP or IV 4 mg IVP once over 4 mins Route: IVP; Infused Over: 4 mins; cp4 Site: left antecubital; 15:11 Follow up: Response: No adverse reaction cp4 14:39 Drug: Ketorolac IVP 15 mg IVP once Route: IVP; Site: left antecubital; cp4 15:10 Follow up: Response: No adverse reaction cp4 14:40 Drug: Magnesium Sulfate IVPB 1 grams IVPB once over 1 hrs Route: IVPB; Infused Over: 1 cp4 hrs; Site: left antecubital; 15:10 Follow up: Response: No adverse reaction; IV Status: Completed infusion cp4 14:40 Drug: Flomax PO 0.4 mg PO once Route: PO; cp4 15:10 Follow up: Response: No adverse reaction cp4 Disposition: 17:45 Co-signature as Attending Physician, Emmanuel Freitas MD I reviewed the patient's care rn provided by the Advanced Practice Provider and agree with the diagnosis and treatment plan. Disposition Summary: 06/18/23 14:43 Discharge Ordered Notes: Location: Home sb4 Problem: new sb4 Symptoms: have improved sb4 Condition: Stable sb4 Diagnosis - Calculus of kidney with calculus of ureter sb4 Followup: sb4 - With: Chadd Gabriel MD - When: As needed - Reason: Recheck today's complaints, Re-evaluation by your physician Discharge Instructions: - Discharge Summary Sheet sb4 - Kidney Stones sb4 Forms: - Prescription Opioid Use sb4 - Patient Portal Instructions sb4 - Leadership Thank You Letter sb4 Prescriptions: - tamsulosin 0.4 mg Oral capsule - take 1 capsule ORAL route every day at bedtime; 30 capsule; Refills: 0, Product sb4 Selection Permitted - ketorolac 10 mg Oral tablet - take 1 tablet ORAL route every 8 hours for 3 days as needed for pain; 15 sb4 tablet; Refills: 0, Product Selection Permitted - Tramadol 50 mg Oral Tablet - take 1 tablet ORAL route every 8 hours as needed; 12 tablet; Refills: 0, sb4 Product Selection Permitted Signatures: Dispatcher [employer] EDMS Kate Rasmussen bd Blaire Bedolla, ANNALEE MANTILLA iw Emmanuel Freitas MD MD rn Brown, Sophia, YARELI DOWNS sb4 Shakira Reyes cp4 Corrections: (The following items were deleted from the chart) 11: 11:06 CBC+H.LAB.BRZ ordered. EDMS EDMS 11: 11:06 COMPREHENSIVE METABOLIC PANEL+C.LAB.BRZ ordered. EDMS EDMS 11: 11:06 LIPASE+C.LAB.BRZ ordered. EDMS EDMS 11:06 11:06 Urinalysis+U.LAB.BRZ ordered. EDMS EDMS
[2023-06-18 15:48] VITALS: BP 136/88; TEMP 98.4; O2SAT 99
== END 2023-06-18 15:12 | disposition home or self-care (01) ==
LOC: ER 10:50
DX: N20.0 Calculus of kidney (principal); N20.1 Calculus of ureter
CPT/HCPCS: 36415; 74177; 80053; 81001; 83690; 85025; 96365; 96375; 99284; J2405; J3475; Q9967